=== PATIENT | male | born 1950 | race African-American/Black ===

== ENCOUNTER 2022-01-31 15:25 | Observation (INO) | payer BC, MEDICARE, OTHER ==
[2022-01-31 15:39] VITALS: BMI 24.6
[2022-01-31 16:29] LABS: VENOUS BASE EXCESS -1.4 mmol/L (-2-2); VENOUS O2 SATURATION 97.2 % (70-80); VENOUS PCO2 36.5 mmHg (38-52); VENOUS PH 7.411 (7.310-7.410)
[2022-01-31 16:38] LABS: BASO % 1.1 % (0-2.0); HEMATOCRIT 42.7 % (35.4-49); HEMOGLOBIN 14.1 GM/dL (11.7-16.9); LYMPH % 33.5 % (8-40); MCH 27.9 pg (25.7-33.7); MCHC 33.1 g/dl (32.0-35.9); MEAN CELL VOLUME 84.2 fl (80-96); MEAN PLT VOLUME 7.9 fl (7.5-11.1); MONO % 8.1 % (3.8-10.2); NEUT % 52.3 % (42.8-82.8); PLATELET COUNT 229 10^3/uL (134-434); RBC 5.07 M/mm3 (4.00-5.60); RDW 13.8 % (11.9-15.9); WHITE BLOOD COUNT 3.5 K/mm3 (4.0-10.0)
[2022-01-31 16:43] LABS: PH,URINE 5.5 (5.0-8.0); URINE APPEARANCE CLEAR; URINE BILIRUBIN NEGATIVE (NEGATIVE); URINE COLOR YELLOW; URINE GLUCOSE (UA) 3+ (NEGATIVE); URINE KETONE NEGATIVE (NEGATIVE); URINE LEUK ESTERASE NEGATIVE (NEGATIVE); URINE NITRITE NEGATIVE (NEGATIVE); URINE PROTEIN NEGATIVE (NEGATIVE); URINE UROBILINOGEN 0.2 mg/dL (0.2-1.0)
[2022-01-31 16:48] LABS: ALBUMIN 4.2 g/dl (3.4-5.0); BLOOD UREA NITROGEN 18.3 mg/dL (7-18)
[2022-01-31 16:51] LABS: CREATININE 1.2 mg/dL (0.55-1.3)
[2022-01-31 16:52] LABS: TOT PROT 7.6 g/dl (6.4-8.2)
[2022-01-31 16:53] LABS: BILIRUBIN,TOTAL 0.8 mg/dL (0.2-1)
[2022-01-31] MEDS ORDERED: LISINOPRIL 10 MG TABLET PO ONE (20:39)
[2022-01-31] MEDS ORDERED: LISINOPRIL 10 MG TABLET ONE (21:18)
[2022-01-31] MEDS ORDERED: ATORVASTATIN CA 40 MG TABLET (FP) ONE (21:18)
[2022-01-31] MEDS: ATORVASTATIN CA 40 MG TABLET (FP) PO SCH (21:19)
[2022-01-31] MEDS: INSULIN SLIDING SCALE (NOVOLOG) 1 VIAL SQ SCH (21:20)
[2022-01-31] MEDS ORDERED: TIMOLOL 0.5% OPHTHALMIC SOL 5 ML BOTTLE OU SCH (22:00)
[2022-01-31] MEDS ORDERED: PNEUMOC 20-VAL CONJ-DIP CRM/PF 0.5 ML SYRINGE IM ONE (22:00)
[2022-01-31] MEDS: TIMOLOL 0.5% OPHTHALMIC SOL 5 ML BOTTLE OU SCH (22:20)
[2022-02-01] MEDS: INSULIN SLIDING SCALE (NOVOLOG) 1 VIAL SQ SCH ×4 (06:02→22:19)
[2022-02-01 09:50] LABS: BASO % 0.8 % (0-2.0); EOS % 5.6 % (0-4.5); HEMATOCRIT 45.7 % (35.4-49); HEMOGLOBIN 15.1 GM/dL (11.7-16.9); LYMPH % 22.7 % (8-40); MCH 27.5 pg (25.7-33.7); MEAN CELL VOLUME 83.4 fl (80-96); MONO % 7.1 % (3.8-10.2); NEUT % 63.8 % (42.8-82.8); PLATELET COUNT 228 10^3/uL (134-434); RBC 5.48 M/mm3 (4.00-5.60); RDW 13.6 % (11.9-15.9); WHITE BLOOD COUNT 4.8 K/mm3 (4.0-10.0)
[2022-02-01] MEDS: amLODIPine BESYLATE 5 MG TABLET (FP) PO SCH (09:57)
[2022-02-01] MEDS: TIMOLOL 0.5% OPHTHALMIC SOL 5 ML BOTTLE OU SCH ×2 (10:01→22:20)
[2022-02-01 10:24] LABS: CALCIUM 9.4 mg/dL (8.5-10.1)
[2022-02-01 10:25] LABS: BLOOD UREA NITROGEN 16.1 mg/dL (7-18); MAGNESIUM 2.2 mg/dL (1.8-2.4)
[2022-02-01 10:28] LABS: CREATININE 0.9 mg/dL (0.55-1.3); PHOSPHOROUS 3.9 mg/dL (2.5-4.9)
[2022-02-01 10:29] LABS: TOT PROT 7.5 g/dl (6.4-8.2)
[2022-02-01 10:30] LABS: BILIRUBIN,TOTAL 1.2 mg/dL (0.2-1)
[2022-02-01] MEDS: ENOXAPARIN NA (PORCINE) 40 MG/0.4 ML DISP.SYRIN SQ SCH (14:34)
[2022-02-01] MEDS ORDERED: INSULIN (NOVOLOG) ASPART 100 UNITS/ML 10ML VIAL ONE (21:41)
[2022-02-01] MEDS ORDERED: LISINOPRIL 20 MG TABLET PO SCH (22:00)
[2022-02-01] MEDS: ATORVASTATIN CA 40 MG TABLET (FP) PO SCH (22:19)
[2022-02-02 03:03] VITALS: TEMP 98.4
[2022-02-02] MEDS: INSULIN SLIDING SCALE (NOVOLOG) 1 VIAL SQ SCH ×2 (06:22→11:41)
[2022-02-02 09:02] VITALS: BP 136/78; PULSE 65
[2022-02-02] MEDS: TIMOLOL 0.5% OPHTHALMIC SOL 5 ML BOTTLE OU SCH (09:57)
[2022-02-02] MEDS: amLODIPine BESYLATE 5 MG TABLET (FP) PO SCH (09:57)
[2022-02-02] MEDS: ENOXAPARIN NA (PORCINE) 40 MG/0.4 ML DISP.SYRIN SQ SCH (09:57)
== END 2022-02-02 16:14 | disposition home or self-care (01) ==
LOC: JER 15:25 → JERBED 17:20 → INTOOBSV 17:20 → J6S 21:53
PROVIDERS: ADMIT Internal Medicine; ATTEND Nurse Practitioner Family
PROC: 3E023GC Introduction of Other Therapeutic Substance into Muscle, Percutaneous Approach (ICD-10-PCS; principal; 2022-01-31)
PROC: 3E013VG Introduction of Insulin into Subcutaneous Tissue, Percutaneous Approach (ICD-10-PCS; 2022-01-31)
PROC: 3E023GC Introduction of Other Therapeutic Substance into Muscle, Percutaneous Approach (ICD-10-PCS; 2022-01-31)
DX: E11.65 Type 2 diabetes mellitus with hyperglycemia (principal); E78.5 Hyperlipidemia, unspecified; I10 Essential (primary) hypertension; Z59.00 Homelessness unspecified; Z29.8 Encounter for other specified prophylactic measures
CPT/HCPCS: 36415; 80053; 81003; 82010; 82803; 82962; 83036; 83735; 84100; 85025; 87086; 90677; 93005; 93010; 96372; 99285-25; C9803-CS; G0378; U0003; U0005

== ENCOUNTER 2023-06-29 00:04 | Observation (INO) | payer BC, OTHER ==
[2023-06-29] MEDS ORDERED: ALBUTEROL SO4 2.5/IPRATROPIUM 0.5 INH SOL 3 ML VIAL.NEB. NEB ONE ×4 (00:49→04:09)
[2023-06-29 01:14] LABS: BASO % 0.9 % (0-2.0); EOS % 5.2 % (0-4.5); HEMATOCRIT 40.6 % (35.4-49); HEMOGLOBIN 13.4 GM/dL (11.7-16.9); LYMPH % 34.8 % (8-40); MCH 27.3 pg (25.7-33.7); MEAN CELL VOLUME 82.9 fl (80-96); MEAN PLT VOLUME 7.7 fl (7.5-11.1); MONO % 9.4 % (3.8-10.2); NEUT % 49.7 % (42.8-82.8); PLATELET COUNT 221 10^3/uL (134-434); RDW 14.8 % (11.9-15.9); WHITE BLOOD COUNT 4.3 K/mm3 (4.0-10.0)
[2023-06-29 01:14] LABS: VENOUS BASE EXCESS 1.5 mmol/L (-2-2); VENOUS O2 SATURATION 54.6 % (70-80); VENOUS PCO2 56.7 mmHg (38-52); VENOUS PH 7.325 (7.310-7.410)
[2023-06-29 01:19] LABS: INR 1.04 (0.83-1.09); PROTHROMBIN TIME (PATIENT) 12.1 SEC (9.7-13.0)
[2023-06-29 01:22] LABS: ACTIVATED PTT 27.2 SECONDS (25.2-36.5)
[2023-06-29 01:32] LABS: POTASSIUM 4.6 mmol/L (3.5-5.1)
[2023-06-29 01:34] LABS: CALCIUM 8.8 mg/dL (8.5-10.1)
[2023-06-29 01:35] LABS: ALBUMIN 3.8 g/dl (3.4-5.0)
[2023-06-29 01:38] LABS: CREATININE 1.3 mg/dL (0.55-1.3)
[2023-06-29 01:39] LABS: BILIRUBIN,TOTAL 0.7 mg/dL (0.2-1); TOT PROT 7.3 g/dl (6.4-8.2)
[2023-06-29 01:42] LABS: N-TERMINAL BNP 136.8 pg/ml (5-125)
[2023-06-29] MEDS ORDERED: INSULIN REGULAR HUMAN 100 UNITS/ML *VIAL SQ ONE (04:04)
[2023-06-29] MEDS ORDERED: methylPREDNISolone NA SUCC 125 MG/2 ML VIAL IVPUSH ONE (04:04)
[2023-06-29] MEDS ORDERED: methylPREDNISolone NA SUCC 40 MG/1 ML VIAL ONE ×2 (04:09→09:36)
[2023-06-29] MEDS ORDERED: INSULIN REGULAR HUMAN 100 UNITS/ML *VIAL ONE (04:10)
[2023-06-29] MEDS ORDERED: DOCUSATE SODIUM 100 MG CAPSULE (FP) PO PRN (06:07)
[2023-06-29] MEDS ORDERED: ACETAMINOPHEN 325 MG TABLET (FP) PO PRN (06:07)
[2023-06-29] MEDS: INSULIN SLIDING SCALE (NOVOLOG) 1 VIAL SQ SCH ×4 (07:29→21:43)
[2023-06-29] MEDS ORDERED: LISINOPRIL 20 MG TABLET ONE (09:35)
[2023-06-29] MEDS ORDERED: CARVEDILOL 25 MG TABLET (FP) ONE (09:36)
[2023-06-29] MEDS: LISINOPRIL 20 MG TABLET PO SCH (09:37)
[2023-06-29] MEDS: methylPREDNISolone NA SUCC 40 MG/1 ML VIAL IVPUSH SCH ×2 (09:37→17:38)
[2023-06-29] MEDS: CARVEDILOL 25 MG TABLET (FP) PO SCH ×2 (09:37→21:41)
[2023-06-29] MEDS: POLYETHYLENE GLYCOL (HEALTHYLAX) 3350 17 GM PACKET PO SCH (09:37)
[2023-06-29] MEDS: levETIRAcetam 500 MG TABLET (FP) PO SCH ×2 (10:23→21:41)
[2023-06-29] MEDS: CHLORTHALIDONE 25 MG TABLET PO SCH (10:37)
[2023-06-29 11:00] VITALS: BMI 26.0
[2023-06-29] MEDS ORDERED: ALBUTEROL SO4 2.5/IPRATROPIUM 0.5 INH SOL 3 ML VIAL.NEB. NEB PRN (16:48)
[2023-06-29] MEDS: ATORVASTATIN CA 80 MG TABLET (FP) PO SCH (21:41)
[2023-06-29] MEDS: INSULIN (LEVEMIR) 100 UNITS/ML UNITS SQ SCH (21:44)
[2023-06-30] MEDS: methylPREDNISolone NA SUCC 40 MG/1 ML VIAL IVPUSH SCH ×3 (02:14→17:54)
[2023-06-30] MEDS: glipiZIDE-XL 10 MG TAB.ER.24 (FP) PO SCH (06:27)
[2023-06-30] MEDS: INSULIN SLIDING SCALE (NOVOLOG) 1 VIAL SQ SCH ×4 (06:27→22:45)
[2023-06-30 07:43] LABS: HEMOGLOBIN 12.1 GM/dL (11.7-16.9); MEAN CELL VOLUME 84.3 fl (80-96); MEAN PLT VOLUME 8.4 fl (7.5-11.1); PLATELET COUNT 220 10^3/uL (134-434); RDW 14.6 % (11.9-15.9); WHITE BLOOD COUNT 13.3 K/mm3 (4.0-10.0)
[2023-06-30 08:23] LABS: POTASSIUM 4.3 mmol/L (3.5-5.1)
[2023-06-30 08:24] LABS: CALCIUM 8.7 mg/dL (8.5-10.1)
[2023-06-30 08:25] LABS: BLOOD UREA NITROGEN 33.2 mg/dL (7-18); MAGNESIUM 2.3 mg/dL (1.8-2.4)
[2023-06-30 08:28] LABS: PHOSPHOROUS 3.8 mg/dL (2.5-4.9)
[2023-06-30] MEDS: CHLORTHALIDONE 25 MG TABLET PO SCH (09:32)
[2023-06-30] MEDS: CARVEDILOL 25 MG TABLET (FP) PO SCH ×2 (09:32→22:46)
[2023-06-30] MEDS: LISINOPRIL 20 MG TABLET PO SCH (09:32)
[2023-06-30] MEDS: POLYETHYLENE GLYCOL (HEALTHYLAX) 3350 17 GM PACKET PO SCH (09:32)
[2023-06-30] MEDS: levETIRAcetam 500 MG TABLET (FP) PO SCH ×2 (09:32→22:46)
[2023-06-30] MEDS: amLODIPine BESYLATE 5 MG TABLET (FP) PO SCH (09:32)
[2023-06-30 10:44] LABS: ANISOCYTOSIS 0; HELMET CELLS 0; HOWELL-JOLLY BODIES 0; MACROCYTOSIS 0; OVALOCYTE 0; ROULEAU 0; SICKELED CELLS 0; TARGET CELLS 0; TEAR DROP CELLS 0; TOXIC GRANULATION 0
[2023-06-30] MEDS ORDERED: SODIUM PHOSPHATE/NA BIPHOS 133 ML ENEMA RC ONE (12:15)
[2023-06-30] MEDS ORDERED: INSULIN (NOVOLOG) ASPART 100 UNITS/ML 10ML VIAL ONE ×2 (12:18→17:47)
[2023-06-30] MEDS: CEFTRIAXONE 1 GM in DEXTROSE 5%-WATER - 50 ML IVPB SCH (15:12)
[2023-06-30] MEDS: ALBUTEROL SO4 2.5/IPRATROPIUM 0.5 INH SOL 3 ML VIAL.NEB. NEB SCH ×2 (15:30→22:26)
[2023-06-30] MEDS: INSULIN (LEVEMIR) 100 UNITS/ML UNITS SQ SCH (22:45)
[2023-06-30] MEDS: ATORVASTATIN CA 80 MG TABLET (FP) PO SCH (22:46)
[2023-07-01] MEDS: methylPREDNISolone NA SUCC 40 MG/1 ML VIAL IVPUSH SCH ×3 (02:07→21:49)
[2023-07-01] MEDS: INSULIN SLIDING SCALE (NOVOLOG) 1 VIAL SQ SCH ×4 (06:23→21:50)
[2023-07-01] MEDS: glipiZIDE-XL 10 MG TAB.ER.24 (FP) PO SCH (06:23)
[2023-07-01] MEDS: CEFTRIAXONE 1 GM in DEXTROSE 5%-WATER - 50 ML IVPB SCH (11:24)
[2023-07-01] MEDS: levETIRAcetam 500 MG TABLET (FP) PO SCH ×2 (11:25→21:48)
[2023-07-01] MEDS: LISINOPRIL 20 MG TABLET PO SCH (11:25)
[2023-07-01] MEDS: CARVEDILOL 25 MG TABLET (FP) PO SCH ×2 (11:25→21:49)
[2023-07-01] MEDS: POLYETHYLENE GLYCOL (HEALTHYLAX) 3350 17 GM PACKET PO SCH (11:25)
[2023-07-01] MEDS: amLODIPine BESYLATE 5 MG TABLET (FP) PO SCH (11:25)
[2023-07-01] MEDS: CHLORTHALIDONE 25 MG TABLET PO SCH (12:02)
[2023-07-01] MEDS: ALBUTEROL SO4 2.5/IPRATROPIUM 0.5 INH SOL 3 ML VIAL.NEB. NEB SCH ×4 (12:30→20:10)
[2023-07-01] MEDS: INSULIN (LEVEMIR) 100 UNITS/ML UNITS SQ SCH (21:49)
[2023-07-01] MEDS: ATORVASTATIN CA 80 MG TABLET (FP) PO SCH (21:49)
[2023-07-02] MEDS: glipiZIDE-XL 10 MG TAB.ER.24 (FP) PO SCH (06:43)
[2023-07-02] MEDS: INSULIN SLIDING SCALE (NOVOLOG) 1 VIAL SQ SCH ×4 (06:43→21:46)
[2023-07-02 07:11] LABS: HEMATOCRIT 39.2 % (35.4-49); HEMOGLOBIN 12.8 GM/dL (11.7-16.9); MCH 27.3 pg (25.7-33.7); MCHC 32.6 g/dl (32.0-35.9); MEAN CELL VOLUME 83.8 fl (80-96); MEAN PLT VOLUME 8.3 fl (7.5-11.1); PLATELET COUNT 221 10^3/uL (134-434); RBC 4.68 M/mm3 (4.00-5.60); RDW 14.7 % (11.9-15.9); WHITE BLOOD COUNT 11.9 K/mm3 (4.0-10.0)
[2023-07-02 07:20] LABS: POTASSIUM 4.2 mmol/L (3.5-5.1)
[2023-07-02 07:22] LABS: ALBUMIN 3.2 g/dl (3.4-5.0); BLOOD UREA NITROGEN 35.6 mg/dL (7-18); CALCIUM 9.1 mg/dL (8.5-10.1)
[2023-07-02] MEDS: ALBUTEROL SO4 2.5/IPRATROPIUM 0.5 INH SOL 3 ML VIAL.NEB. NEB SCH ×4 (07:25→20:15)
[2023-07-02 07:27] LABS: BILIRUBIN,TOTAL 0.6 mg/dL (0.2-1); TOT PROT 6.7 g/dl (6.4-8.2)
[2023-07-02 09:01] LABS: ANISOCYTOSIS 0; MACROCYTOSIS 0
[2023-07-02] MEDS: CEFTRIAXONE 1 GM in DEXTROSE 5%-WATER - 50 ML IVPB SCH (10:44)
[2023-07-02] MEDS: amLODIPine BESYLATE 5 MG TABLET (FP) PO SCH (10:46)
[2023-07-02] MEDS: levETIRAcetam 500 MG TABLET (FP) PO SCH ×2 (10:46→21:37)
[2023-07-02] MEDS: methylPREDNISolone NA SUCC 40 MG/1 ML VIAL IVPUSH SCH ×2 (10:46→21:40)
[2023-07-02] MEDS: LISINOPRIL 20 MG TABLET PO SCH (10:46)
[2023-07-02] MEDS: CARVEDILOL 25 MG TABLET (FP) PO SCH ×2 (10:46→21:40)
[2023-07-02] MEDS: CHLORTHALIDONE 25 MG TABLET PO SCH (10:46)
[2023-07-02] MEDS: POLYETHYLENE GLYCOL (HEALTHYLAX) 3350 17 GM PACKET PO SCH (10:46)
[2023-07-02] MEDS: ATORVASTATIN CA 80 MG TABLET (FP) PO SCH (21:38)
[2023-07-02] MEDS: INSULIN (LEVEMIR) 100 UNITS/ML UNITS SQ SCH (21:38)
[2023-07-03] MEDS: INSULIN SLIDING SCALE (NOVOLOG) 1 VIAL SQ SCH ×4 (07:41→22:02)
[2023-07-03] MEDS: glipiZIDE-XL 10 MG TAB.ER.24 (FP) PO SCH (07:41)
[2023-07-03] MEDS: ALBUTEROL SO4 2.5/IPRATROPIUM 0.5 INH SOL 3 ML VIAL.NEB. NEB SCH ×3 (08:50→14:55)
[2023-07-03] MEDS: CARVEDILOL 25 MG TABLET (FP) PO SCH ×2 (10:07→22:01)
[2023-07-03] MEDS: methylPREDNISolone NA SUCC 40 MG/1 ML VIAL IVPUSH SCH (10:07)
[2023-07-03] MEDS: LISINOPRIL 20 MG TABLET PO SCH (10:07)
[2023-07-03] MEDS: CEFTRIAXONE 1 GM in DEXTROSE 5%-WATER - 50 ML IVPB SCH (10:07)
[2023-07-03] MEDS: POLYETHYLENE GLYCOL (HEALTHYLAX) 3350 17 GM PACKET PO SCH (10:08)
[2023-07-03] MEDS: levETIRAcetam 500 MG TABLET (FP) PO SCH ×2 (10:08→22:01)
[2023-07-03] MEDS: CHLORTHALIDONE 25 MG TABLET PO SCH (10:08)
[2023-07-03] MEDS: amLODIPine BESYLATE 5 MG TABLET (FP) PO SCH (10:08)
[2023-07-03] MEDS ORDERED: INSULIN (LEVEMIR) 100 UNITS/ML UNITS SQ SCH (13:30)
[2023-07-03] MEDS: ATORVASTATIN CA 80 MG TABLET (FP) PO SCH (22:01)
[2023-07-04] MEDS: glipiZIDE-XL 10 MG TAB.ER.24 (FP) PO SCH (06:40)
[2023-07-04] MEDS: INSULIN SLIDING SCALE (NOVOLOG) 1 VIAL SQ SCH ×3 (06:40→17:54)
[2023-07-04] MEDS: ALBUTEROL SO4 2.5/IPRATROPIUM 0.5 INH SOL 3 ML VIAL.NEB. NEB SCH ×3 (07:15→15:52)
[2023-07-04] MEDS ORDERED: methylPREDNISolone NA SUCC 40 MG/1 ML VIAL IVPUSH SCH (10:00)
[2023-07-04] MEDS: LISINOPRIL 20 MG TABLET PO SCH (10:41)
[2023-07-04] MEDS: amLODIPine BESYLATE 5 MG TABLET (FP) PO SCH (10:41)
[2023-07-04] MEDS: levETIRAcetam 500 MG TABLET (FP) PO SCH (10:41)
[2023-07-04] MEDS: CARVEDILOL 25 MG TABLET (FP) PO SCH (10:41)
[2023-07-04] MEDS: POLYETHYLENE GLYCOL (HEALTHYLAX) 3350 17 GM PACKET PO SCH (10:42)
[2023-07-04] MEDS: CHLORTHALIDONE 25 MG TABLET PO SCH (10:42)
[2023-07-04] MEDS: CEFTRIAXONE 1 GM in DEXTROSE 5%-WATER - 50 ML IVPB SCH (10:42)
[2023-07-04 15:33] VITALS: PULSE 72; RESP 20
[2023-07-04 18:33] VITALS: BP 122/76; TEMP 98.4
== END 2023-07-04 19:23 | disposition home or self-care (01) ==
LOC: JER 00:04 → JERBED 04:21 → J4W 09:57
PROVIDERS: ADMIT Internal Medicine; ATTEND Internal Medicine
PROC: 3E033NZ Introduction of Analgesics, Hypnotics, Sedatives into Peripheral Vein, Percutaneous Approach (ICD-10-PCS; principal; 2023-06-29)
PROC: 3E013VG Introduction of Insulin into Subcutaneous Tissue, Percutaneous Approach (ICD-10-PCS; 2023-06-29)
PROC: 3E03329 Introduction of Other Anti-infective into Peripheral Vein, Percutaneous Approach (ICD-10-PCS; 2023-06-29)
PROC: 3E033GC Introduction of Other Therapeutic Substance into Peripheral Vein, Percutaneous Approach (ICD-10-PCS; 2023-06-29)
PROC: 3E0F7SF Introduction of Other Gas into Respiratory Tract, Via Natural or Artificial Opening (ICD-10-PCS; 2023-06-29)
DX: E11.65 Type 2 diabetes mellitus with hyperglycemia (principal); J44.1 Chronic obstructive pulmonary disease with (acute) exacerbation; R06.2 Wheezing; R14.0 Abdominal distension (gaseous); I10 Essential (primary) hypertension; E78.5 Hyperlipidemia, unspecified; G40.909 Epilepsy, unspecified, not intractable, without status epilepticus; G30.9 Alzheimer's disease, unspecified; F02.80 Dementia in other diseases classified elsewhere, unspecified severity, without behavioral disturbance, psychotic disturbance, mood disturbance, and anxiety; Z85.46 Personal history of malignant neoplasm of prostate; Z79.4 Long term (current) use of insulin; Z86.73 Personal history of transient ischemic attack (TIA), and cerebral infarction without residual deficits
CPT/HCPCS: 0241U-QW; 36415; 71045-TC-FY; 71275-TC; 74177-TC; 80048; 80053; 82010; 82803; 82962; 83036; 83690; 83735; 83880; 84100; 84484; 85025; 85610; 85730; 86850; 86900; 86901; 87081; 93005; 93010; 93306-TC; 93970-TC; 94640; 94761; 96372; 96374; 96375; 96376; 97116-GP; 97161-GP; 99285-25; G0378; Q9967

== ENCOUNTER 2023-08-18 23:59 | Inpatient (IN) | payer BC, OTHER ==
[2023-08-19] MEDS ORDERED: methylPREDNISolone NA SUCC 125 MG/2 ML VIAL IVPUSH ONE (00:33)
[2023-08-19] MEDS ORDERED: methylPREDNISolone NA SUCC 125 MG/2 ML VIAL ONE (01:06)
[2023-08-19] MEDS: ALBUTEROL SO4 2.5/IPRATROPIUM 0.5 INH SOL 3 ML VIAL.NEB. NEB SCH ×4 (01:12→02:25)
[2023-08-19 01:16] LABS: VENOUS BASE EXCESS 4.5 mmol/L (-2-2); VENOUS O2 SATURATION 39.4 % (70-80); VENOUS PCO2 57.6 mmHg (38-52); VENOUS PH 7.355 (7.310-7.410)
[2023-08-19 01:18] LABS: BASO % 1.1 % (0-2.0); EOS % 7.1 % (0-4.5); HEMATOCRIT 36.5 % (35.4-49); HEMOGLOBIN 11.7 GM/dL (11.7-16.9); LYMPH % 32.7 % (8-40); MCH 27.1 pg (25.7-33.7); MCHC 32.1 g/dl (32.0-35.9); MEAN CELL VOLUME 84.4 fl (80-96); MEAN PLT VOLUME 7.9 fl (7.5-11.1); NEUT % 46.1 % (42.8-82.8); PLATELET COUNT 254 10^3/uL (134-434); RBC 4.32 M/mm3 (4.00-5.60); RDW 14.8 % (11.9-15.9); WHITE BLOOD COUNT 5.4 K/mm3 (4.0-10.0)
[2023-08-19 01:36] LABS: POTASSIUM 3.7 mmol/L (3.5-5.1)
[2023-08-19 01:38] LABS: CALCIUM 8.7 mg/dL (8.5-10.1)
[2023-08-19 01:39] LABS: ALBUMIN 3.3 g/dl (3.4-5.0); BLOOD UREA NITROGEN 18.8 mg/dL (7-18)
[2023-08-19 01:42] LABS: PHOSPHOROUS 2.5 mg/dL (2.5-4.9)
[2023-08-19 01:43] LABS: BILIRUBIN,TOTAL 0.5 mg/dL (0.2-1)
[2023-08-19 01:47] LABS: N-TERMINAL BNP 297.7 pg/ml (5-125)
[2023-08-19] MEDS ORDERED: ALBUTEROL SO4 2.5/IPRATROPIUM 0.5 INH SOL 3 ML VIAL.NEB. NEB ONE ×2 (01:52→19:35)
[2023-08-19] MEDS ORDERED: levETIRAcetam 500 MG/5 ML INJECTION VIAL IVPB ONE ×2 (01:56→02:27)
[2023-08-19] MEDS ORDERED: ACETAMINOPHEN 1000 MG/100 ML BAG IVPB ONE (02:35)
[2023-08-19] MEDS ORDERED: LIDOCAINE 5% TOPICAL PATCH TP ONE (02:35)
[2023-08-19 02:48] LABS: PH,URINE 5.5 (5.0-8.0); URINE APPEARANCE CLEAR; URINE BILIRUBIN NEGATIVE (NEGATIVE); URINE COLOR YELLOW; URINE GLUCOSE (UA) 2+ (NEGATIVE); URINE KETONE NEGATIVE (NEGATIVE); URINE LEUK ESTERASE NEGATIVE (NEGATIVE); URINE NITRITE NEGATIVE (NEGATIVE); URINE PROTEIN NEGATIVE (NEGATIVE); URINE UROBILINOGEN 0.2 mg/dL (0.2-1.0)
[2023-08-19] MEDS ORDERED: ACETAMINOPHEN INJECTION 100 ML IVPB ONE (03:00)
[2023-08-19] MEDS ORDERED: LIDOCAINE 4% PATCH TP ONE (03:06)
[2023-08-19] MEDS: levETIRAcetam 500 MG TABLET (FP) PO SCH ×2 (10:05→22:03)
[2023-08-19 18:01] VITALS: BMI 23.6
[2023-08-19] MEDS: LIDOCAINE PATCH REMOVAL MC SCH ×2 (22:04→22:11)
[2023-08-20] MEDS: INSULIN ASPART SLIDING SCALE (NOVOLOG) 1 VIAL SQ SCH ×4 (06:27→17:09)
[2023-08-20 09:09] LABS: HEMATOCRIT 34.3 % (35.4-49); HEMOGLOBIN 11.4 GM/dL (11.7-16.9); MCH 27.5 pg (25.7-33.7); MCHC 33.1 g/dl (32.0-35.9); MEAN CELL VOLUME 83.1 fl (80-96); MEAN PLT VOLUME 7.9 fl (7.5-11.1); PLATELET COUNT 246 10^3/uL (134-434); RBC 4.13 M/mm3 (4.00-5.60); RDW 14.5 % (11.9-15.9); WHITE BLOOD COUNT 7.8 K/mm3 (4.0-10.0)
[2023-08-20 09:24] LABS: POTASSIUM 3.6 mmol/L (3.5-5.1)
[2023-08-20 09:32] LABS: CALCIUM 9.1 mg/dL (8.5-10.1)
[2023-08-20 09:33] LABS: BLOOD UREA NITROGEN 24.2 mg/dL (7-18)
[2023-08-20 09:36] LABS: CREATININE 1.1 mg/dL (0.55-1.3)
[2023-08-20] MEDS: levETIRAcetam 500 MG TABLET (FP) PO SCH ×2 (10:24→21:35)
[2023-08-20] MEDS: metFORMIN HCL 500 MG TABLET (FP) PO SCH (17:09)
[2023-08-20] MEDS: glipiZIDE 5 MG TABLET (FP) PO SCH (17:09)
[2023-08-20] MEDS: CARVEDILOL 25 MG TABLET (FP) PO SCH (21:37)
[2023-08-20] MEDS: ACETAMINOPHEN 325 MG TABLET (FP) PO PRN (21:38)
[2023-08-20] MEDS ORDERED: levETIRAcetam 500 MG TABLET (FP) PO SCH (22:00)
[2023-08-20] MEDS ORDERED: ATORVASTATIN CA 40 MG TABLET (FP) PO SCH (22:00)
[2023-08-20] MEDS: INSULIN (LEVEMIR) 100 UNITS/ML UNITS SQ SCH (23:05)
[2023-08-20] MEDS: LIDOCAINE PATCH REMOVAL MC SCH (23:06)
[2023-08-21] MEDS: glipiZIDE 5 MG TABLET (FP) PO SCH ×2 (06:36→17:08)
[2023-08-21] MEDS: metFORMIN HCL 500 MG TABLET (FP) PO SCH ×2 (06:36→17:08)
[2023-08-21] MEDS: INSULIN ASPART SLIDING SCALE (NOVOLOG) 1 VIAL SQ SCH ×4 (06:37→17:09)
[2023-08-21] MEDS: CARVEDILOL 25 MG TABLET (FP) PO SCH ×2 (09:32→22:09)
[2023-08-21] MEDS: LISINOPRIL 20 MG TABLET PO SCH (09:32)
[2023-08-21] MEDS: POLYETHYLENE GLYCOL (HEALTHYLAX) 3350 17 GM PACKET PO SCH (09:33)
[2023-08-21] MEDS: CHLORTHALIDONE 25 MG TABLET PO SCH (09:33)
[2023-08-21] MEDS: levETIRAcetam 500 MG TABLET (FP) PO SCH ×2 (09:33→22:09)
[2023-08-21] MEDS ORDERED: LISINOPRIL 10 MG TABLET PO SCH (10:00)
[2023-08-21] MEDS: BUDESONIDE/FORMETEROL FUMARATE 160/4.5 mcg INHALER IH SCH ×2 (10:04→22:11)
[2023-08-21] MEDS: ACETAMINOPHEN 325 MG TABLET (FP) PO PRN (22:09)
[2023-08-21] MEDS: ATORVASTATIN CA 80 MG TABLET (FP) PO SCH (22:09)
[2023-08-21] MEDS: INSULIN (LEVEMIR) 100 UNITS/ML UNITS SQ SCH (22:10)
[2023-08-21] MEDS: LIDOCAINE PATCH REMOVAL MC SCH (22:13)
[2023-08-22] MEDS: glipiZIDE 5 MG TABLET (FP) PO SCH ×2 (06:28→17:27)
[2023-08-22] MEDS: metFORMIN HCL 500 MG TABLET (FP) PO SCH ×2 (06:28→17:27)
[2023-08-22] MEDS: INSULIN ASPART SLIDING SCALE (NOVOLOG) 1 VIAL SQ SCH ×3 (06:30→17:26)
[2023-08-22] MEDS: POLYETHYLENE GLYCOL (HEALTHYLAX) 3350 17 GM PACKET PO SCH (11:15)
[2023-08-22] MEDS: levETIRAcetam 500 MG TABLET (FP) PO SCH ×2 (11:16→21:53)
[2023-08-22] MEDS: CHLORTHALIDONE 25 MG TABLET PO SCH (11:16)
[2023-08-22] MEDS: CARVEDILOL 25 MG TABLET (FP) PO SCH ×2 (11:16→21:54)
[2023-08-22] MEDS: BUDESONIDE/FORMETEROL FUMARATE 160/4.5 mcg INHALER IH SCH ×2 (11:17→22:43)
[2023-08-22] MEDS: LISINOPRIL 20 MG TABLET PO SCH (11:17)
[2023-08-22 14:52] VITALS: RESP 18
[2023-08-22] MEDS: LIDOCAINE PATCH REMOVAL MC SCH (21:37)
[2023-08-22] MEDS: INSULIN (LEVEMIR) 100 UNITS/ML UNITS SQ SCH (21:53)
[2023-08-22] MEDS: ATORVASTATIN CA 80 MG TABLET (FP) PO SCH (21:53)
[2023-08-23] MEDS: INSULIN ASPART SLIDING SCALE (NOVOLOG) 1 VIAL SQ SCH ×3 (06:40→16:54)
[2023-08-23] MEDS: INSULIN (LEVEMIR) 100 UNITS/ML UNITS SQ SCH ×2 (06:41→22:56)
[2023-08-23] MEDS: metFORMIN HCL 500 MG TABLET (FP) PO SCH ×2 (06:41→16:59)
[2023-08-23] MEDS: glipiZIDE 5 MG TABLET (FP) PO SCH ×2 (06:41→16:59)
[2023-08-23] MEDS: LISINOPRIL 20 MG TABLET PO SCH (09:09)
[2023-08-23] MEDS: levETIRAcetam 500 MG TABLET (FP) PO SCH ×2 (09:10→22:48)
[2023-08-23] MEDS: BUDESONIDE/FORMETEROL FUMARATE 160/4.5 mcg INHALER IH SCH ×2 (09:10→22:55)
[2023-08-23] MEDS: CARVEDILOL 25 MG TABLET (FP) PO SCH ×2 (09:10→22:57)
[2023-08-23] MEDS: CHLORTHALIDONE 25 MG TABLET PO SCH (09:10)
[2023-08-23] MEDS: POLYETHYLENE GLYCOL (HEALTHYLAX) 3350 17 GM PACKET PO SCH (09:10)
[2023-08-23] MEDS: ATORVASTATIN CA 80 MG TABLET (FP) PO SCH (22:49)
[2023-08-23] MEDS: LIDOCAINE PATCH REMOVAL MC SCH (22:57)
[2023-08-24] MEDS: metFORMIN HCL 500 MG TABLET (FP) PO SCH ×2 (06:23→16:36)
[2023-08-24] MEDS: glipiZIDE 5 MG TABLET (FP) PO SCH ×2 (06:23→16:36)
[2023-08-24] MEDS: INSULIN (LEVEMIR) 100 UNITS/ML UNITS SQ SCH ×2 (06:24→22:17)
[2023-08-24] MEDS: INSULIN ASPART SLIDING SCALE (NOVOLOG) 1 VIAL SQ SCH ×3 (06:26→16:34)
[2023-08-24] MEDS: LISINOPRIL 20 MG TABLET PO SCH (10:06)
[2023-08-24] MEDS: levETIRAcetam 500 MG TABLET (FP) PO SCH ×2 (10:06→22:17)
[2023-08-24] MEDS: CARVEDILOL 25 MG TABLET (FP) PO SCH ×2 (10:06→22:17)
[2023-08-24] MEDS: POLYETHYLENE GLYCOL (HEALTHYLAX) 3350 17 GM PACKET PO SCH (10:07)
[2023-08-24] MEDS: BUDESONIDE/FORMETEROL FUMARATE 160/4.5 mcg INHALER IH SCH ×2 (10:07→22:18)
[2023-08-24] MEDS: CHLORTHALIDONE 25 MG TABLET PO SCH (10:07)
[2023-08-24] MEDS: ATORVASTATIN CA 80 MG TABLET (FP) PO SCH (22:16)
[2023-08-24] MEDS: LIDOCAINE PATCH REMOVAL MC SCH (22:19)
[2023-08-25] MEDS: INSULIN ASPART SLIDING SCALE (NOVOLOG) 1 VIAL SQ SCH ×2 (06:08→11:36)
[2023-08-25] MEDS: glipiZIDE 5 MG TABLET (FP) PO SCH (06:11)
[2023-08-25] MEDS: INSULIN (LEVEMIR) 100 UNITS/ML UNITS SQ SCH (06:11)
[2023-08-25] MEDS: metFORMIN HCL 500 MG TABLET (FP) PO SCH (06:11)
[2023-08-25] MEDS: POLYETHYLENE GLYCOL (HEALTHYLAX) 3350 17 GM PACKET PO SCH (09:02)
[2023-08-25] MEDS: LISINOPRIL 20 MG TABLET PO SCH (09:02)
[2023-08-25] MEDS: CARVEDILOL 25 MG TABLET (FP) PO SCH (09:03)
[2023-08-25] MEDS: levETIRAcetam 500 MG TABLET (FP) PO SCH (09:03)
[2023-08-25] MEDS: BUDESONIDE/FORMETEROL FUMARATE 160/4.5 mcg INHALER IH SCH (09:03)
[2023-08-25] MEDS: CHLORTHALIDONE 25 MG TABLET PO SCH (09:03)
[2023-08-25 14:22] VITALS: BP 103/71; PULSE 73; TEMP 97.3
== END 2023-08-25 15:58 | DRG 53 ==
LOC: JER 23:59 → JERBED 08-19 06:31 → OBSVTOIN 08-19 10:40 → J6S 08-19 19:50
PROVIDERS: ADMIT Internal Medicine; ATTEND Internal Medicine
DX: G40.909 Epilepsy, unspecified, not intractable, without status epilepticus (principal); G30.9 Alzheimer's disease, unspecified; F02.80 Dementia in other diseases classified elsewhere, unspecified severity, without behavioral disturbance, psychotic disturbance, mood disturbance, and anxiety; J44.9 Chronic obstructive pulmonary disease, unspecified; I10 Essential (primary) hypertension; E78.5 Hyperlipidemia, unspecified; R91.8 Other nonspecific abnormal finding of lung field; K59.00 Constipation, unspecified; M21.372 Foot drop, left foot; M21.371 Foot drop, right foot; N40.0 Benign prostatic hyperplasia without lower urinary tract symptoms; Z99.81 Dependence on supplemental oxygen; Z85.46 Personal history of malignant neoplasm of prostate
CPT/HCPCS: 0241U-QW; 36415; 70450-TC; 71045-TC-FY; 74177-TC; 80048; 80053; 80177; 81003; 82803; 82962; 83605; 83735; 83880; 84100; 84443; 84484; 85025; 85027; 86850; 86900; 86901; 87081; 87086; 87186; 93005; 93010; 93970-TC; 95816; 97116-GP; 99285-25; G0378; Q9967

== ENCOUNTER 2023-09-21 15:29 | Inpatient (IN) | payer BC, OTHER ==
[2023-09-21] MEDS ORDERED: ACETAMINOPHEN INJECTION 100 ML IVPB ONE (17:47)
[2023-09-21 18:08] LABS: BASO % 1.4 % (0-2.0); EOS % 3.9 % (0-4.5); HEMATOCRIT 37.9 % (35.4-49); HEMOGLOBIN 12.6 GM/dL (11.7-16.9); LYMPH % 33.8 % (8-40); MCH 27.9 pg (25.7-33.7); MCHC 33.2 g/dl (32.0-35.9); MEAN CELL VOLUME 83.9 fl (80-96); MEAN PLT VOLUME 7.1 fl (7.5-11.1); MONO % 9.1 % (3.8-10.2); NEUT % 51.8 % (42.8-82.8); PLATELET COUNT 217 10^3/uL (134-434); RBC 4.52 M/mm3 (4.00-5.60); WHITE BLOOD COUNT 5.8 K/mm3 (4.0-10.0)
[2023-09-21 18:16] LABS: INR 1.05 (0.83-1.09); PROTHROMBIN TIME (PATIENT) 12.2 SEC (9.7-13.0)
[2023-09-21 18:19] LABS: ACTIVATED PTT 28.7 SECONDS (25.2-36.5)
[2023-09-21 18:31] LABS: POTASSIUM 4.1 mmol/L (3.5-5.1)
[2023-09-21 18:32] LABS: CALCIUM 8.7 mg/dL (8.5-10.1)
[2023-09-21 18:34] LABS: ALBUMIN 3.4 g/dl (3.4-5.0); BLOOD UREA NITROGEN 15.6 mg/dL (7-18); MAGNESIUM 2.2 mg/dL (1.8-2.4)
[2023-09-21 18:36] LABS: CREATININE 0.9 mg/dL (0.55-1.3); PHOSPHOROUS 3.8 mg/dL (2.5-4.9)
[2023-09-21 18:38] LABS: BILIRUBIN,TOTAL 0.7 mg/dL (0.2-1); TOT PROT 6.3 g/dl (6.4-8.2)
[2023-09-21] MEDS: ACETAMINOPHEN 1000 MG/100 ML BAG IVPB ONE (19:01)
[2023-09-21] MEDS ORDERED: levETIRAcetam 500 MG/5 ML INJECTION VIAL IVPB ONE (20:41)
[2023-09-21] MEDS: levETIRAcetam 500 MG/5 ML INJECTION VIAL IVPB ONE (20:54)
[2023-09-21] MEDS ORDERED: ONDANSETRON 4 MG/2 ML VIAL IVPUSH PRN (21:33)
[2023-09-21] MEDS ORDERED: ACETAMINOPHEN 650 MG SUPP.RECT RC PRN (21:51)
[2023-09-21] MEDS: THIAMINE HCL 200 MG/2 ML VIAL IVPB SCH (22:54)
[2023-09-21] MEDS: FOLIC ACID 5 MG/1 ML SQ ONE (22:55)
[2023-09-21] MEDS: PANTOPRAZOLE SODIUM 40 MG VIAL IVPUSH SCH (22:55)
[2023-09-21] MEDS: LACTATED RINGERS SOLUTION 1,000 ML/1,000 ML INFUS.BAG IV SCH (22:56)
[2023-09-21] MEDS: MUPIROCIN 2% TOPICAL OINTMENT FOR DECOLONIZATION NS SCH (22:56)
[2023-09-21] MEDS: CHLORHEXIDINE GLUCONATE 4% CLEANSER FOR DECOLONIZATION TP SCH (22:56)
[2023-09-21] MEDS: ALBUTEROL SO4 2.5/IPRATROPIUM 0.5 INH SOL 3 ML VIAL.NEB. NEB SCH (23:00)
[2023-09-21] MEDS: INSULIN ASPART SLIDING SCALE (NOVOLOG) 1 VIAL SQ SCH (23:32)
[2023-09-22] MEDS ORDERED: DEXTROSE 50%-WATER 25 GM/50 ML DISP.SYRIN IVPUSH PRN (00:34)
[2023-09-22 01:02] LABS: URINE APPEARANCE CLEAR; URINE BILIRUBIN NEGATIVE (NEGATIVE); URINE COLOR YELLOW; URINE GLUCOSE (UA) NEGATIVE (NEGATIVE); URINE KETONE NEGATIVE (NEGATIVE); URINE LEUK ESTERASE NEGATIVE (NEGATIVE); URINE NITRITE NEGATIVE (NEGATIVE); URINE PROTEIN NEGATIVE (NEGATIVE); URINE UROBILINOGEN 0.2 mg/dL (0.2-1.0)
[2023-09-22 07:02] LABS: BASO % 0.5 % (0-2.0); EOS % 4.9 % (0-4.5); HEMATOCRIT 34.5 % (35.4-49); HEMOGLOBIN 11.5 GM/dL (11.7-16.9); LYMPH % 36.1 % (8-40); MCHC 33.2 g/dl (32.0-35.9); MEAN CELL VOLUME 84.3 fl (80-96); MEAN PLT VOLUME 7.6 fl (7.5-11.1); MONO % 9.3 % (3.8-10.2); NEUT % 49.2 % (42.8-82.8); PLATELET COUNT 199 10^3/uL (134-434); RBC 4.09 M/mm3 (4.00-5.60); RDW 14.9 % (11.9-15.9); WHITE BLOOD COUNT 4.6 K/mm3 (4.0-10.0)
[2023-09-22 07:04] LABS: INR 1.1 (0.83-1.09); PROTHROMBIN TIME (PATIENT) 12.7 SEC (9.7-13.0)
[2023-09-22 07:07] LABS: ACTIVATED PTT 27.3 SECONDS (25.2-36.5)
[2023-09-22 07:27] LABS: POTASSIUM 4.1 mmol/L (3.5-5.1)
[2023-09-22 07:36] LABS: CALCIUM 8.4 mg/dL (8.5-10.1)
[2023-09-22 07:37] LABS: BLOOD UREA NITROGEN 13.6 mg/dL (7-18); MAGNESIUM 1.8 mg/dL (1.8-2.4)
[2023-09-22 07:39] LABS: CREATININE 0.8 mg/dL (0.55-1.3); PHOSPHOROUS 3.5 mg/dL (2.5-4.9)
[2023-09-22 07:44] LABS: TOT PROT 5.8 g/dl (6.4-8.2)
[2023-09-22] MEDS ORDERED: SODIUM PHOSPHATE/NA BIPHOS 133 ML ENEMA RC PRN (09:53)
[2023-09-22] MEDS ORDERED: levETIRAcetam 500 MG/5 ML INJECTION VIAL IVPB SCH (10:00)
[2023-09-22] MEDS: POLYETHYLENE GLYCOL (HEALTHYLAX) 3350 17 GM PACKET PO SCH ×2 (10:51→21:54)
[2023-09-22] MEDS: levETIRAcetam 500 MG/5 ML INJECTION VIAL IVPB SCH (10:51)
[2023-09-22] MEDS: amLODIPine BESYLATE 5 MG TABLET (FP) PO ONE (10:51)
[2023-09-22] MEDS: FLU VACCINE (FLULAVAL) PF 60 MCG/0.5 ML SYRINGE 2023-2024 IM ONE (11:30)
[2023-09-22] MEDS: MULTIVIT INJ. ADULT COMBO WITH VIT K 1 COMBO 10 ML VIAL IV SCH (14:04)
[2023-09-22] MEDS: LISINOPRIL 20 MG TABLET PO ONE (17:40)
[2023-09-22] MEDS: ATORVASTATIN CA 80 MG TABLET (FP) PO SCH (21:54)
[2023-09-22] MEDS: SENNOSIDES 8.8 MG/5 ML SYRUP PO SCH (21:54)
[2023-09-23 06:55] LABS: BASO % 0.6 % (0-2.0); HEMATOCRIT 37.5 % (35.4-49); LYMPH % 20.9 % (8-40); MCH 27.3 pg (25.7-33.7); MCHC 32.1 g/dl (32.0-35.9); MEAN CELL VOLUME 84.9 fl (80-96); MEAN PLT VOLUME 7.8 fl (7.5-11.1); MONO % 9.4 % (3.8-10.2); NEUT % 63.1 % (42.8-82.8); PLATELET COUNT 208 10^3/uL (134-434); RBC 4.42 M/mm3 (4.00-5.60); WHITE BLOOD COUNT 4.7 K/mm3 (4.0-10.0)
[2023-09-23 07:19] LABS: POTASSIUM 4.2 mmol/L (3.5-5.1)
[2023-09-23 07:25] LABS: CALCIUM 8.4 mg/dL (8.5-10.1)
[2023-09-23 07:26] LABS: ALBUMIN 3.2 g/dl (3.4-5.0); BLOOD UREA NITROGEN 13.8 mg/dL (7-18)
[2023-09-23 07:28] LABS: BILIRUBIN,TOTAL 1.4 mg/dL (0.2-1); TOT PROT 6.4 g/dl (6.4-8.2)
[2023-09-23 07:29] LABS: CREATININE 0.8 mg/dL (0.55-1.3)
[2023-09-23] MEDS: LISINOPRIL 20 MG TABLET PO SCH (09:43)
[2023-09-23] MEDS ORDERED: INSULIN (NOVOLOG) ASPART 100 UNITS/ML 10ML VIAL ONE ×2 (12:12→16:10)
[2023-09-23] MEDS: CARVEDILOL 25 MG TABLET (FP) PO SCH (22:05)
[2023-09-24] MEDS ORDERED: DEXTROSE 50%-WATER 25 GM/50 ML DISP.SYRIN IVPUSH PRN (07:14)
[2023-09-24] MEDS ORDERED: ONDANSETRON 4 MG/2 ML VIAL IVPUSH PRN (07:14)
[2023-09-24] MEDS ORDERED: SODIUM PHOSPHATE/NA BIPHOS 133 ML ENEMA RC PRN (07:14)
[2023-09-24] MEDS ORDERED: ACETAMINOPHEN 650 MG SUPP.RECT RC PRN (07:14)
[2023-09-24] MEDS: ALBUTEROL SO4 2.5/IPRATROPIUM 0.5 INH SOL 3 ML VIAL.NEB. NEB SCH (07:53)
[2023-09-24] MEDS: PANTOPRAZOLE 40 MG TABLET PO SCH (09:20)
[2023-09-24] MEDS: levETIRAcetam 500 MG/5 ML INJECTION VIAL IVPB SCH (09:21)
[2023-09-24] MEDS: POLYETHYLENE GLYCOL (HEALTHYLAX) 3350 17 GM PACKET PO SCH ×2 (09:21→21:48)
[2023-09-24] MEDS: amLODIPine BESYLATE 5 MG TABLET (FP) PO SCH (10:48)
[2023-09-24] MEDS: INSULIN ASPART SLIDING SCALE (NOVOLOG) 1 VIAL SQ SCH (11:46)
[2023-09-24] MEDS ORDERED: ALBUTEROL SO4 2.5/IPRATROPIUM 0.5 INH SOL 3 ML VIAL.NEB. NEB PRN (13:06)
[2023-09-24 15:06] VITALS: BMI 25.4
[2023-09-24] MEDS: SENNOSIDES 8.8 MG/5 ML SYRUP PO SCH (21:49)
[2023-09-24] MEDS: ATORVASTATIN CA 80 MG TABLET (FP) PO SCH (21:49)
[2023-09-25] MEDS ORDERED: SODIUM PHOSPHATE/NA BIPHOS 133 ML ENEMA RC PRN (13:33)
[2023-09-25] MEDS ORDERED: DEXTROSE 50%-WATER 25 GM/50 ML DISP.SYRIN IVPUSH PRN (13:33)
[2023-09-25] MEDS ORDERED: ONDANSETRON 4 MG/2 ML VIAL IVPUSH PRN (13:33)
[2023-09-25] MEDS ORDERED: ACETAMINOPHEN 650 MG SUPP.RECT RC PRN (13:33)
[2023-09-25] MEDS ORDERED: ALBUTEROL SO4 2.5/IPRATROPIUM 0.5 INH SOL 3 ML VIAL.NEB. NEB PRN (13:33)
[2023-09-25] MEDS: MULTIVIT INJ. ADULT COMBO WITH VIT K 1 COMBO 10 ML VIAL IV SCH ×2 (13:37→14:54)
[2023-09-25 14:33] VITALS: RESP 18
[2023-09-25] MEDS ORDERED: ACETAMINOPHEN 325 MG TABLET (FP) PO PRN (14:50)
[2023-09-25] MEDS: MULTIVITAMINS (DAILY MVI) TABLET (FP) PO SCH (16:51)
[2023-09-25] MEDS: INSULIN ASPART SLIDING SCALE (NOVOLOG) 1 VIAL SQ SCH (16:55)
[2023-09-25] MEDS: levETIRAcetam 500 MG TABLET (FP) PO SCH (21:36)
[2023-09-25] MEDS: CARVEDILOL 25 MG TABLET (FP) PO SCH (21:36)
[2023-09-25] MEDS: ATORVASTATIN CA 80 MG TABLET (FP) PO SCH (21:36)
[2023-09-25] MEDS: SENNOSIDES 8.8 MG/5 ML SYRUP PO SCH (21:38)
[2023-09-25] MEDS ORDERED: POLYETHYLENE GLYCOL (HEALTHYLAX) 3350 17 GM PACKET PO SCH (22:00)
[2023-09-26] MEDS: PANTOPRAZOLE 40 MG TABLET PO SCH (09:50)
[2023-09-26] MEDS: LISINOPRIL 20 MG TABLET PO SCH (09:50)
[2023-09-26] MEDS ORDERED: amLODIPine BESYLATE 5 MG TABLET (FP) PO SCH (10:00)
[2023-09-26] MEDS ORDERED: MULTIVIT INJ. ADULT COMBO WITH VIT K 1 COMBO 10 ML VIAL IV SCH (10:00)
[2023-09-26] MEDS ORDERED: POLYETHYLENE GLYCOL (HEALTHYLAX) 3350 17 GM PACKET PO PRN (10:00)
[2023-09-26] MEDS: amLODIPine BESYLATE 10 MG TABLET (FP) PO SCH (10:09)
[2023-09-26] MEDS ORDERED: INSULIN (NOVOLOG) ASPART 100 UNITS/ML 10ML VIAL ONE ×2 (11:21→16:48)
[2023-09-27 05:15] VITALS: BP 123/76; PULSE 83; TEMP 99.5
[2023-09-27] MEDS ORDERED: INSULIN (NOVOLOG) ASPART 100 UNITS/ML 10ML VIAL ONE (11:05)
== END 2023-09-27 11:48 | DRG 82 ==
LOC: JER 15:29 → JERBED 16:45 → UNDOADMOB 16:45 → JERBED 19:24 → JICU 21:31 → J4W 09-22 18:17 → J8W 09-25 13:32
PROVIDERS: ADMIT Internal Medicine; ATTEND Internal Medicine
DX: S06.359A Traumatic hemorrhage of left cerebrum with loss of consciousness of unspecified duration, initial encounter (principal); G93.6 Cerebral edema; J44.0 Chronic obstructive pulmonary disease with (acute) lower respiratory infection; I10 Essential (primary) hypertension; E78.5 Hyperlipidemia, unspecified; E11.9 Type 2 diabetes mellitus without complications; G40.909 Epilepsy, unspecified, not intractable, without status epilepticus; R55 Syncope and collapse; G30.9 Alzheimer's disease, unspecified; F02.80 Dementia in other diseases classified elsewhere, unspecified severity, without behavioral disturbance, psychotic disturbance, mood disturbance, and anxiety; R91.8 Other nonspecific abnormal finding of lung field; W18.39XA Other fall on same level, initial encounter; Y92.098 Other place in other non-institutional residence as the place of occurrence of the external cause; Y99.9 Unspecified external cause status; Z85.46 Personal history of malignant neoplasm of prostate; Z99.81 Dependence on supplemental oxygen
CPT/HCPCS: 0241U-QW; 36415; 70450-TC; 70553-TC; 71046-TC-FY; 72125-TC; 72170-TC-FY; 73030-TC-RT-FY; 73060-TC-RT-FY; 73552-TC-RT-FY; 74018-TC-FY; 80053; 81003; 82550; 82962; 83036; 83735; 84100; 84436; 84443; 84484; 85025; 85027; 85610; 85730; 86850; 86900; 86901; 87040; 87086; 87635; 90686; 93005; 93010; 94640; 97116-GP; 97162-GP; 99291; G0008; J0131

== ENCOUNTER 2023-10-31 14:17 | Inpatient (IN) | payer OTHER ==
[2023-10-31] MEDS ORDERED: ACETAMINOPHEN INJECTION 100 ML IVPB ONE (15:37)
[2023-10-31 15:42] LABS: HEMATOCRIT 38.2 % (35.4-49); HEMOGLOBIN 12.4 GM/dL (11.7-16.9); MCH 26.9 pg (25.7-33.7); MCHC 32.5 g/dl (32.0-35.9); MEAN CELL VOLUME 82.8 fl (80-96); MEAN PLT VOLUME 7.6 fl (7.5-11.1); PLATELET COUNT 356 10^3/uL (134-434); RBC 4.61 M/mm3 (4.00-5.60); RDW 15.1 % (11.9-15.9); WHITE BLOOD COUNT 14.7 K/mm3 (4.0-10.0)
[2023-10-31] MEDS: ACETAMINOPHEN 1000 MG/100 ML BAG IVPB ONE (15:43)
[2023-10-31] MEDS: LACTATED RINGERS SOLUTION 1000 ML INFUS.BAG IV ONE ×2 (15:44→17:30)
[2023-10-31 15:49] LABS: INR 1.63 (0.83-1.09); PROTHROMBIN TIME (PATIENT) 18.8 SEC (9.7-13.0)
[2023-10-31 15:52] LABS: ACTIVATED PTT 23.8 SECONDS (25.2-36.5)
[2023-10-31 16:19] LABS: ANISOCYTOSIS 2+; MACROCYTOSIS 0; OVALOCYTE 2+
[2023-10-31 16:28] LABS: CHLORIDE 111 mmol/L (98-107); SODIUM 133 mmol/L (136-145)
[2023-10-31 16:31] LABS: CALCIUM 9.3 mg/dL (8.5-10.1); CO2 18 mmol/L (21-32); GLUCOSE,RANDOM 256 mg/dL (74-106)
[2023-10-31 16:32] LABS: ALBUMIN 2.6 g/dl (3.4-5.0)
[2023-10-31 16:33] LABS: CREATININE 3.4 mg/dL (0.55-1.3)
[2023-10-31 16:35] LABS: SGOT/AST 44 U/L (15-37)
[2023-10-31 16:36] LABS: ALK PHOS 238 U/L (45-117); BILIRUBIN,TOTAL 0.9 mg/dL (0.2-1); TOT PROT 7.6 g/dl (6.4-8.2)
[2023-10-31 17:24] LABS: ANION GAP 5 mmol/L (4-13); BLOOD UREA NITROGEN 130.9 mg/dL (7-18); POTASSIUM 8.8 mmol/L (3.5-5.1); SGPT/ALT 32 U/L (13-61)
[2023-10-31 18:06] LABS: CHLORIDE 111 mmol/L (98-107); POTASSIUM 5.6 mmol/L (3.5-5.1); SODIUM 139 mmol/L (136-145)
[2023-10-31 18:08] LABS: ANION GAP 9 mmol/L (4-13); CALCIUM 9.5 mg/dL (8.5-10.1); CO2 19 mmol/L (21-32); GLUCOSE,RANDOM 269 mg/dL (74-106)
[2023-10-31 18:12] LABS: CREATININE 3.4 mg/dL (0.55-1.3)
[2023-10-31 18:12] LABS: EPI CELLS 1 /uL (0-25.1); HYALINE CASTS 0 /uL (0-3.1); URINE APPEARANCE TURBID; URINE BACTERIA 5935 /uL (0-1359); URINE BILIRUBIN NEGATIVE (NEGATIVE); URINE COLOR YELLOW; URINE GLUCOSE (UA) NEGATIVE (NEGATIVE); URINE KETONE TRACE (NEGATIVE); URINE LEUK ESTERASE 3+ (NEGATIVE); URINE NITRITE NEGATIVE (NEGATIVE); URINE PROTEIN 1+ (NEGATIVE); URINE UROBILINOGEN 0.2 mg/dL (0.2-1.0); URINE WBC 2367 /uL (0-25.8)
[2023-10-31 18:15] LABS: URINE RBC 35.6 /uL (0-23.9)
[2023-10-31 18:54] LABS: BLOOD UREA NITROGEN 134.7 mg/dL (7-18)
[2023-10-31] MEDS ORDERED: PIPERACILLIN/TAZOB 3.375 GM 3.375 GM/50 ML BAG IVPB ONE (19:52)
[2023-10-31] MEDS: PIPERACILLIN/TAZOB 3.375 GM 3.375 GM in DEXTROSE 5%-WATER - 50 ML IVPB ONE (20:05)
[2023-10-31] MEDS: INSULIN ASPART SLIDING SCALE (NOVOLOG) 1 VIAL SQ SCH (22:56)
[2023-10-31] MEDS: SODIUM CHLORIDE 1,000 ML IV SCH (22:57)
[2023-11-01 00:37] LABS: CALCIUM 8.6 mg/dL (8.5-10.1); CHLORIDE 113 mmol/L (98-107); POTASSIUM 5.5 mmol/L (3.5-5.1); SODIUM 139 mmol/L (136-145)
[2023-11-01 00:38] LABS: ANION GAP 6 mmol/L (4-13); CO2 20 mmol/L (21-32); GLUCOSE,RANDOM 229 mg/dL (74-106)
[2023-11-01 00:41] LABS: CREATININE 3.2 mg/dL (0.55-1.3); PHOSPHOROUS 5.3 mg/dL (2.5-4.9)
[2023-11-01] MEDS: PIPERACILLIN/TAZOB 2.25 GM 2.25 GM in DEXTROSE 5%-WATER - 50 ML IVPB SCH ×2 (02:52→10:17)
[2023-11-01] MEDS ORDERED: ALBUTEROL SO4 2.5/IPRATROPIUM 0.5 INH SOL 3 ML VIAL.NEB. NEB PRN (05:39)
[2023-11-01 09:23] LABS: BASO % 0.1 % (0-2.0); HEMATOCRIT 33.8 % (35.4-49); HEMOGLOBIN 10.6 GM/dL (11.7-16.9); LYMPH % 6.5 % (8-40); MCH 26.2 pg (25.7-33.7); MCHC 31.4 g/dl (32.0-35.9); MEAN CELL VOLUME 83.4 fl (80-96); MEAN PLT VOLUME 7.4 fl (7.5-11.1); MONO % 4.1 % (3.8-10.2); NEUT % 88.3 % (42.8-82.8); PLATELET COUNT 288 10^3/uL (134-434); RBC 4.06 M/mm3 (4.00-5.60); RDW 14.6 % (11.9-15.9); WHITE BLOOD COUNT 13.6 K/mm3 (4.0-10.0)
[2023-11-01 09:32] LABS: CHLORIDE 119 mmol/L (98-107); POTASSIUM 4.7 mmol/L (3.5-5.1); SODIUM 150 mmol/L (136-145)
[2023-11-01 09:33] LABS: ANION GAP 10 mmol/L (4-13); CALCIUM 8.8 mg/dL (8.5-10.1); CO2 21 mmol/L (21-32); GLUCOSE,RANDOM 130 mg/dL (74-106)
[2023-11-01 09:38] LABS: CREATININE 2.3 mg/dL (0.55-1.3); PHOSPHOROUS 4.4 mg/dL (2.5-4.9)
[2023-11-01] MEDS: levETIRAcetam 500 MG TABLET (FP) PO SCH (09:45)
[2023-11-01] MEDS: POLYETHYLENE GLYCOL (HEALTHYLAX) 3350 17 GM PACKET PO SCH (09:45)
[2023-11-01] MEDS: CARVEDILOL 25 MG TABLET (FP) PO SCH (09:46)
[2023-11-01 10:23] LABS: BLOOD UREA NITROGEN 108.3 mg/dL (7-18)
[2023-11-01] MEDS: SODIUM CHLORIDE 0.45% 1,000 ML IV SCH (15:24)
[2023-11-01] MEDS: POTASSIUM CHLORIDE 10 MEQ in SODIUM CHLORIDE 0.45% 1,000 ML IVPB SCH (15:34)
[2023-11-01] MEDS: PIPERACILLIN/TAZOB 3.375 GM 3.375 GM in DEXTROSE 5%-WATER - 50 ML IVPB SCH (17:17)
[2023-11-01] MEDS: SENNOSIDES 8.8 MG/5 ML SYRUP PO SCH (22:42)
[2023-11-01] MEDS: ATORVASTATIN CA 40 MG TABLET (FP) PO SCH (22:42)
[2023-11-02] MEDS: TAMSULOSIN HCL 0.4 MG CAP PO SCH (08:38)
[2023-11-02 09:35] LABS: BASO % 0.2 % (0-2.0); EOS % 1.5 % (0-4.5); HEMATOCRIT 32.5 % (35.4-49); HEMOGLOBIN 10.3 GM/dL (11.7-16.9); LYMPH % 8.9 % (8-40); MCH 26.4 pg (25.7-33.7); MCHC 31.7 g/dl (32.0-35.9); MEAN PLT VOLUME 7.5 fl (7.5-11.1); MONO % 5.1 % (3.8-10.2); NEUT % 84.3 % (42.8-82.8); PLATELET COUNT 260 10^3/uL (134-434); RBC 3.92 M/mm3 (4.00-5.60); WHITE BLOOD COUNT 12.4 K/mm3 (4.0-10.0)
[2023-11-02 09:50] LABS: POTASSIUM 4.1 mmol/L (3.5-5.1)
[2023-11-02] MEDS ORDERED: PIPERACILLIN/TAZOBACTAM 3.375 GM VIAL IVPB ONE (09:51)
[2023-11-02 09:52] LABS: CALCIUM 8.5 mg/dL (8.5-10.1)
[2023-11-02 09:54] LABS: ALBUMIN 2.2 g/dl (3.4-5.0)
[2023-11-02 09:57] LABS: BILIRUBIN,TOTAL 0.5 mg/dL (0.2-1); CREATININE 1.4 mg/dL (0.55-1.3)
[2023-11-02 10:20] LABS: BLOOD UREA NITROGEN 59.8 mg/dL (7-18)
[2023-11-02 14:59] VITALS: BMI 21.9
[2023-11-02] MEDS: CEFAZOLIN SODIUM 2 GM in DEXTROSE 5%-WATER 100 ML IVPB SCH (17:55)
[2023-11-04 06:45] VITALS: TEMP 98.4
[2023-11-04 09:57] LABS: BASO % 0.2 % (0-2.0); EOS % 1.6 % (0-4.5); HEMATOCRIT 33.6 % (35.4-49); HEMOGLOBIN 11.2 GM/dL (11.7-16.9); LYMPH % 11.3 % (8-40); MCHC 33.4 g/dl (32.0-35.9); MEAN PLT VOLUME 7.7 fl (7.5-11.1); MONO % 5.3 % (3.8-10.2); NEUT % 81.6 % (42.8-82.8); PLATELET COUNT 245 10^3/uL (134-434); RBC 4.15 M/mm3 (4.00-5.60); RDW 14.5 % (11.9-15.9); WHITE BLOOD COUNT 8.5 K/mm3 (4.0-10.0)
[2023-11-04 10:07] LABS: POTASSIUM 3.9 mmol/L (3.5-5.1)
[2023-11-04 10:17] LABS: ALBUMIN 2.2 g/dl (3.4-5.0); CALCIUM 7.9 mg/dL (8.5-10.1)
[2023-11-04 10:20] LABS: CREATININE 0.8 mg/dL (0.55-1.3)
[2023-11-04 10:22] LABS: BILIRUBIN,TOTAL 0.4 mg/dL (0.2-1); TOT PROT 5.9 g/dl (6.4-8.2)
[2023-11-04 10:28] LABS: BLOOD UREA NITROGEN 16.1 mg/dL (7-18)
[2023-11-04 10:35] VITALS: BP 128/80; PULSE 80; RESP 16
== END 2023-11-04 11:55 | DRG 728 ==
LOC: JER 14:17 → JERBED 17:53 → J5S 21:21
PROVIDERS: ADMIT Internal Medicine; ATTEND Internal Medicine
DX: N45.3 Epididymo-orchitis (principal); N39.0 Urinary tract infection, site not specified; N17.9 Acute kidney failure, unspecified; G40.909 Epilepsy, unspecified, not intractable, without status epilepticus; E78.5 Hyperlipidemia, unspecified; E87.5 Hyperkalemia; E88.09 Other disorders of plasma-protein metabolism, not elsewhere classified; I10 Essential (primary) hypertension; R33.9 Retention of urine, unspecified; G30.9 Alzheimer's disease, unspecified; F02.80 Dementia in other diseases classified elsewhere, unspecified severity, without behavioral disturbance, psychotic disturbance, mood disturbance, and anxiety; J44.9 Chronic obstructive pulmonary disease, unspecified; E11.65 Type 2 diabetes mellitus with hyperglycemia
CPT/HCPCS: 36415; 70450-TC; 71045-TC-FY; 72125-TC; 72170-TC-FY; 73630-TC-RT-FY; 76775-TC; 76856-TC; 76870-TC; 80048; 80053; 81003; 82550; 82553; 82962; 83735; 84100; 85025; 85610; 85730; 86850; 86900; 86901; 87040; 87086; 87186; 93005; 93010; 97116-GP; 97161-GP; 99285-25; J0131

== ENCOUNTER 2024-01-24 18:17 | Inpatient (IN) | payer OTHER ==
[2024-01-24 21:19] LABS: BASO % 0.4 % (0-2.0); EOS % 3.8 % (0-4.5); HEMATOCRIT 35.1 % (35.4-49); HEMOGLOBIN 11.4 GM/dL (11.7-16.9); MCH 27.2 pg (25.7-33.7); MCHC 32.5 g/dl (32.0-35.9); MEAN CELL VOLUME 83.6 fl (80-96); MEAN PLT VOLUME 8.1 fl (7.5-11.1); NEUT % 61.8 % (42.8-82.8); PLATELET COUNT 238 10^3/uL (134-434); RDW 16.8 % (11.9-15.9); WHITE BLOOD COUNT 5.1 K/mm3 (4.0-10.0)
[2024-01-24 21:31] LABS: VENOUS BASE EXCESS 1.9 mmol/L (-2-2); VENOUS O2 SATURATION 69.3 % (70-80); VENOUS PCO2 51.5 mmHg (38-52); VENOUS PH 7.357 (7.310-7.410)
[2024-01-24 21:50] LABS: POTASSIUM 3.7 mmol/L (3.5-5.1)
[2024-01-24 21:52] LABS: CALCIUM 7.8 mg/dL (8.5-10.1)
[2024-01-24 21:53] LABS: BLOOD UREA NITROGEN 10.8 mg/dL (7-18)
[2024-01-24 21:56] LABS: CREATININE 0.5 mg/dL (0.55-1.3)
[2024-01-24 21:57] LABS: BILIRUBIN,TOTAL 1.1 mg/dL (0.2-1)
[2024-01-24] MEDS ORDERED: ACETAMINOPHEN INJECTION 100 ML IVPB ONE (22:31)
[2024-01-24] MEDS ORDERED: VALPROATE SODIUM 500 MG/5 ML VIAL ONE (22:31)
[2024-01-24] MEDS: VALPROATE SODIUM 500 MG/5 ML VIAL IVPB ONE (22:46)
[2024-01-24] MEDS: ACETAMINOPHEN 1000 MG/100 ML BAG IVPB ONE (22:46)
[2024-01-24 23:06] LABS: MAGNESIUM 1.3 mg/dL (1.8-2.4)
[2024-01-24] MEDS ORDERED: MAGNESIUM SULF 50% (8.12 MEQ/2 ML-1 GM VIAL) IVPB ONE (23:06)
[2024-01-24] MEDS ORDERED: VALPROATE SODIUM 500 MG/5 ML VIAL IVPB ONE (23:20)
[2024-01-25] MEDS: VALPROATE SODIUM INJECTION 1,000 MG in DEXTROSE 5%-WATER - 100 ML IVPB ONE (01:41)
[2024-01-25] MEDS: MAGNESIUM 2GM/50ML STERILE WATER IVPB IVPB ONE (01:41)
[2024-01-25] MEDS ORDERED: NITROPRUSSIDE SODIUM 25 MG/1 ML ML IVPB ONE (02:07)
[2024-01-25] MEDS ORDERED: NITROGLYCERIN 25MG/D5W 250ML 25 MG/250 ML ML IVPB ONE (02:08)
[2024-01-25 06:15] LABS: EPI CELLS 28 /uL (0-25.1); HYALINE CASTS 2 /uL (0-3.1); PH,URINE 6.5 (5.0-8.0); URINE APPEARANCE CLEAR; URINE BACTERIA 1 /uL (0-1359); URINE BILIRUBIN NEGATIVE (NEGATIVE); URINE COLOR DK YELLOW; URINE GLUCOSE (UA) NEGATIVE (NEGATIVE); URINE KETONE 1+ (NEGATIVE); URINE LEUK ESTERASE TRACE (NEGATIVE); URINE NITRITE NEGATIVE (NEGATIVE); URINE PROTEIN 1+ (NEGATIVE); URINE RBC 30 /uL (0-23.9); URINE WBC 93 /uL (0-25.8)
[2024-01-25] MEDS: ALBUTEROL SO4 2.5/IPRATROPIUM 0.5 INH SOL 3 ML VIAL.NEB. NEB SCH (08:00)
[2024-01-25] MEDS ORDERED: ALBUTEROL SO4 2.5/IPRATROPIUM 0.5 INH SOL 3 ML VIAL.NEB. NEB ONE ×2 (08:09→16:04)
[2024-01-25] MEDS: levETIRAcetam 500 MG/5 ML INJECTION VIAL IVPB SCH ×2 (09:46→21:35)
[2024-01-25 11:43] LABS: CHLORIDE 106 mmol/L (98-107); POTASSIUM 5.2 mmol/L (3.5-5.1); SODIUM 139 mmol/L (136-145)
[2024-01-25 11:51] LABS: ANION GAP 7 mmol/L (4-13); CALCIUM 8.4 mg/dL (8.5-10.1); CO2 27 mmol/L (21-32); MAGNESIUM 1.9 mg/dL (1.8-2.4)
[2024-01-25 11:52] LABS: BLOOD UREA NITROGEN 15.1 mg/dL (7-18)
[2024-01-25 11:55] LABS: CREATININE 0.6 mg/dL (0.55-1.3); PHOSPHOROUS 4.1 mg/dL (2.5-4.9)
[2024-01-25 11:56] LABS: HEMATOCRIT 45.9 % (35.4-49); HEMOGLOBIN 14.9 GM/dL (11.7-16.9); MCH 27.3 pg (25.7-33.7); MCHC 32.4 g/dl (32.0-35.9); MEAN CELL VOLUME 84.1 fl (80-96); RBC 5.46 M/mm3 (4.00-5.60); RDW 16.7 % (11.9-15.9); WHITE BLOOD COUNT 4.7 K/mm3 (4.0-10.0)
[2024-01-25 11:57] LABS: GLUCOSE,RANDOM 45 mg/dL (74-106)
[2024-01-25] MEDS ORDERED: DEXTROSE 50%-WATER 25 GM/50 ML DISP.SYRIN ONE (12:13)
[2024-01-25] MEDS: DEXTROSE 50%-WATER - 25 GM/50 ML VIAL IVPUSH ONE (12:16)
[2024-01-25] MEDS ORDERED: D5-1/2NS+20 MEQ KCL - 20 MEQ/1,000 ML INFUS.BAG IV SCH (17:45)
[2024-01-25] MEDS: WATER IVPB ONE (17:55)
[2024-01-25] MEDS: DEXTROSE 5% IVPB ONE (17:55)
[2024-01-25] MEDS: LEVETIRACETAM IVPB ONE (17:55)
[2024-01-25] MEDS: DEXTROSE 5%-0.45% SALINE 1,000 ML IV SCH (17:55)
[2024-01-25] MEDS: levETIRAcetam 500 MG/5 ML INJECTION VIAL IVPB ONE (18:04)
[2024-01-25] MEDS: CARVEDILOL 25 MG TABLET (FP) PO SCH (21:36)
[2024-01-25] MEDS: ATORVASTATIN CA 40 MG TABLET (FP) PO SCH (21:36)
[2024-01-26] MEDS: TAMSULOSIN HCL 0.4 MG CAP PO SCH (10:19)
[2024-01-27] MEDS: lamoTRIgine 25 MG TABLET PO SCH (09:57)
[2024-01-27] MEDS: MULTIVITAMINS (DAILY MVI) TABLET (FP) PO SCH (14:38)
[2024-01-27] MEDS: ASCORBIC ACID 500 MG TABLET (FP) PO SCH (14:38)
[2024-01-28 09:22] LABS: POTASSIUM 3.5 mmol/L (3.5-5.1)
[2024-01-28 09:24] LABS: CALCIUM 7.7 mg/dL (8.5-10.1)
[2024-01-28 09:28] LABS: CREATININE 0.6 mg/dL (0.55-1.3)
[2024-01-28] MEDS ORDERED: INSULIN ASPART SLIDING SCALE (NOVOLOG) 1 VIAL SQ ONE (17:15)
[2024-01-28 19:18] VITALS: BMI 21.8
[2024-01-30 08:45] LABS: POTASSIUM 3.3 mmol/L (3.5-5.1)
[2024-01-30 08:48] LABS: ALBUMIN 2.4 g/dl (3.4-5.0)
[2024-01-30 08:51] LABS: CREATININE 0.5 mg/dL (0.55-1.3)
[2024-01-30 08:53] LABS: BILIRUBIN,TOTAL 0.8 mg/dL (0.2-1); CALCIUM 7.2 mg/dL (8.5-10.1); TOT PROT 5.3 g/dl (6.4-8.2)
[2024-01-30 09:04] LABS: BASO % 0.7 % (0-2.0); EOS % 7.1 % (0-4.5); HEMATOCRIT 31.9 % (35.4-49); HEMOGLOBIN 10.6 GM/dL (11.7-16.9); LYMPH % 25.2 % (8-40); MCH 27.3 pg (25.7-33.7); MCHC 33.2 g/dl (32.0-35.9); MEAN PLT VOLUME 8.4 fl (7.5-11.1); MONO % 9.9 % (3.8-10.2); NEUT % 57.1 % (42.8-82.8); PLATELET COUNT 211 10^3/uL (134-434); RBC 3.89 M/mm3 (4.00-5.60); WHITE BLOOD COUNT 4.7 K/mm3 (4.0-10.0)
[2024-01-30] MEDS: levETIRAcetam 500 MG/5 ML INJECTION VIAL IVPB ONE (16:44)
[2024-01-30] MEDS: KCL 10 MEQ IVPB 10 MEQ/100 ML INFUS.BAG IVPB SCH (18:27)
[2024-01-30] MEDS: D5-1/2NS+30 MEQ KCL - 30 MEQ/1,000 ML INFUS.BAG IV SCH (21:26)
[2024-01-31] MEDS ORDERED: METOPROLOL TARTRATE 5 MG/5 ML VIAL IVPUSH PRN (07:57)
[2024-01-31 08:14] LABS: BASO % 0.4 % (0-2.0); EOS % 4.7 % (0-4.5); HEMATOCRIT 32.6 % (35.4-49); HEMOGLOBIN 10.8 GM/dL (11.7-16.9); LYMPH % 20.2 % (8-40); MCH 27.4 pg (25.7-33.7); MCHC 33.3 g/dl (32.0-35.9); MEAN CELL VOLUME 82.4 fl (80-96); MEAN PLT VOLUME 7.8 fl (7.5-11.1); MONO % 10.7 % (3.8-10.2); PLATELET COUNT 251 10^3/uL (134-434); RBC 3.95 M/mm3 (4.00-5.60); RDW 15.9 % (11.9-15.9); WHITE BLOOD COUNT 5.5 K/mm3 (4.0-10.0)
[2024-01-31 08:22] LABS: POTASSIUM 3.4 mmol/L (3.5-5.1)
[2024-01-31 08:23] LABS: CALCIUM 8.2 mg/dL (8.5-10.1)
[2024-01-31 08:24] LABS: ALBUMIN 2.8 g/dl (3.4-5.0); BLOOD UREA NITROGEN 6.6 mg/dL (7-18); MAGNESIUM 1.4 mg/dL (1.8-2.4)
[2024-01-31 08:27] LABS: CREATININE 0.6 mg/dL (0.55-1.3)
[2024-01-31 08:29] LABS: TOT PROT 5.8 g/dl (6.4-8.2)
[2024-01-31] MEDS: PIPERACILLIN/TAZOB 3.375 GM 3.375 GM in DEXTROSE 5%-WATER - 50 ML IVPB SCH (12:01)
[2024-01-31] MEDS: KCL 10 MEQ IVPB 10 MEQ/100 ML INFUS.BAG IVPB SCH (12:06)
[2024-01-31] MEDS: MAGNESIUM SULF 50% (8.12 MEQ/2 ML-1 GM VIAL) IVPB ONE (12:08)
[2024-01-31] MEDS ORDERED: clonazePAM 0.5 MG TABLET PO PRN (14:11)
[2024-02-01] MEDS: VALPROATE SODIUM 250 MG/5 ML UNIT DOSE CUP NGT SCH (00:06)
[2024-02-01] MEDS: THIAMINE HCL 200 MG/2 ML VIAL IVPB SCH (10:27)
[2024-02-01] MEDS: INSULIN ASPART SLIDING SCALE (NOVOLOG) 1 VIAL SQ SCH (12:55)
[2024-02-03] MEDS: hydrALAZINE HCL 20 MG/ML VIAL IM PRN (15:07)
[2024-02-03] MEDS: DEXTROSE 5%-NORMAL SALINE 1,000 ML IV SCH (17:33)
[2024-02-04] MEDS ORDERED: METOPROLOL TARTRATE 5 MG/5 ML VIAL IVPUSH PRN (13:07)
[2024-02-04] MEDS: PIPERACILLIN/TAZOB 3.375 GM 3.375 GM in DEXTROSE 5%-WATER - 50 ML IVPB SCH ×2 (13:10→23:55)
[2024-02-04] MEDS: DIVALPROEX NA *ER* EXTEND REL 500 MG TABLET.SA (FP) PO SCH (13:12)
[2024-02-04] MEDS: VALPROATE SODIUM 250 MG/5 ML UNIT DOSE CUP NGT SCH (17:10)
[2024-02-04] MEDS: INSULIN ASPART SLIDING SCALE (NOVOLOG) 1 VIAL SQ SCH (17:10)
[2024-02-04] MEDS: levETIRAcetam 500 MG/5 ML INJECTION VIAL IVPB SCH (21:41)
[2024-02-04] MEDS: hydrALAZINE HCL 20 MG/ML VIAL IM PRN (21:42)
[2024-02-04] MEDS: CARVEDILOL 25 MG TABLET (FP) PO SCH (23:53)
[2024-02-04] MEDS: ATORVASTATIN CA 40 MG TABLET (FP) PO SCH (23:53)
[2024-02-04] MEDS: ASCORBIC ACID 500 MG/5 ML UNIT DOSE CUP NGT SCH (23:54)
[2024-02-05] MEDS ORDERED: TAMSULOSIN HCL 0.4 MG CAP PO SCH (08:30)
[2024-02-05] MEDS: AMOX TR/POTASSIUM CLAVULANATE 600 MG/5 ML GT SCH (09:50)
[2024-02-05] MEDS: MULTIVIT-MINERALS ORAL LIQUID NGT SCH (10:37)
[2024-02-05] MEDS: THIAMINE HCL 200 MG/2 ML VIAL IVPB SCH (10:39)
[2024-02-05 11:14] LABS: HEMATOCRIT 33.7 % (35.4-49); HEMOGLOBIN 11.2 GM/dL (11.7-16.9); MCH 26.9 pg (25.7-33.7); MCHC 33.1 g/dl (32.0-35.9); MEAN CELL VOLUME 81.3 fl (80-96); MEAN PLT VOLUME 7.2 fl (7.5-11.1); PLATELET COUNT 365 10^3/uL (134-434); RBC 4.15 M/mm3 (4.00-5.60); RDW 16.3 % (11.9-15.9); WHITE BLOOD COUNT 7.3 K/mm3 (4.0-10.0)
[2024-02-05 11:26] LABS: CHLORIDE 101 mmol/L (98-107); SODIUM 142 mmol/L (136-145)
[2024-02-05 11:28] LABS: ALBUMIN 2.5 g/dl (3.4-5.0); CALCIUM 8.1 mg/dL (8.5-10.1); CO2 31 mmol/L (21-32); GLUCOSE,RANDOM 233 mg/dL (74-106)
[2024-02-05 11:31] LABS: CREATININE 0.5 mg/dL (0.55-1.3); SGOT/AST 15 U/L (15-37); SGPT/ALT 15 U/L (13-61)
[2024-02-05 11:33] LABS: TOT PROT 5.7 g/dl (6.4-8.2)
[2024-02-05 11:34] LABS: ALK PHOS 79 U/L (45-117)
[2024-02-05 11:39] LABS: ANION GAP 10 mmol/L (4-13); BLOOD UREA NITROGEN 2.2 mg/dL (7-18); POTASSIUM 2.1 mmol/L (3.5-5.1)
[2024-02-05] MEDS: PIPERACILLIN/TAZOB 3.375 GM 3.375 GM in DEXTROSE 5%-WATER - 50 ML IVPB ONE (11:52)
[2024-02-05] MEDS: KCL 10 MEQ IVPB 10 MEQ/100 ML INFUS.BAG IVPB SCH (13:48)
[2024-02-05] MEDS: POTASSIUM CHLORIDE ORAL LIQUID 20 MEQ/15 ML GT SCH (14:39)
[2024-02-05] MEDS: D5-NS + 20 MEQ KCL - 20 MEQ/1,000 ML INFUS.BAG IV SCH (17:08)
[2024-02-05] MEDS: DEXTROSE 5%-NORMAL SALINE 990 ML with POTASSIUM CHLORIDE 20 MEQ IV SCH (17:09)
[2024-02-06 10:33] LABS: BLOOD UREA NITROGEN 3.3 mg/dL (7-18); CALCIUM 7.7 mg/dL (8.5-10.1); CHLORIDE 108 mmol/L (98-107); CO2 31 mmol/L (21-32); CREATININE 0.6 mg/dL (0.55-1.3); MAGNESIUM 1.5 mg/dL (1.8-2.4); SODIUM 147 mmol/L (136-145)
[2024-02-06 10:35] LABS: GLUCOSE,RANDOM 237 mg/dL (74-106)
[2024-02-06 10:39] LABS: ANION GAP 7 mmol/L (4-13); POTASSIUM 2.7 mmol/L (3.5-5.1)
[2024-02-06] MEDS: KCL 10 MEQ IVPB 10 MEQ/100 ML INFUS.BAG IVPB SCH (12:10)
[2024-02-07] MEDS: KCL 10 MEQ IVPB 10 MEQ/100 ML INFUS.BAG IVPB SCH (11:59)
[2024-02-07 13:08] LABS: BASO % 0.4 % (0-2.0); EOS % 0.8 % (0-4.5); HEMATOCRIT 32.4 % (35.4-49); HEMOGLOBIN 10.5 GM/dL (11.7-16.9); LYMPH % 12.2 % (8-40); MCHC 32.5 g/dl (32.0-35.9); MEAN CELL VOLUME 82.9 fl (80-96); MEAN PLT VOLUME 7.3 fl (7.5-11.1); MONO % 5.4 % (3.8-10.2); NEUT % 81.2 % (42.8-82.8); PLATELET COUNT 297 10^3/uL (134-434); RBC 3.91 M/mm3 (4.00-5.60); WHITE BLOOD COUNT 7.5 K/mm3 (4.0-10.0)
[2024-02-07 13:26] LABS: POTASSIUM 3.7 mmol/L (3.5-5.1)
[2024-02-07 13:27] LABS: ALBUMIN 2.4 g/dl (3.4-5.0)
[2024-02-07 13:29] LABS: BLOOD UREA NITROGEN 6.6 mg/dL (7-18)
[2024-02-07 13:30] LABS: CREATININE 0.8 mg/dL (0.55-1.3)
[2024-02-07 13:33] LABS: BILIRUBIN,TOTAL 0.6 mg/dL (0.2-1); TOT PROT 5.8 g/dl (6.4-8.2)
[2024-02-07] MEDS: POLYETHYLENE GLYCOL (HEALTHYLAX) 3350 17 GM PACKET GT SCH (13:56)
[2024-02-07] MEDS: D5-1/2NS+20 MEQ KCL - 20 MEQ/1,000 ML INFUS.BAG IV SCH (17:17)
[2024-02-07] MEDS: INSULIN (LEVEMIR) 100 UNITS/ML UNITS SQ SCH (21:39)
[2024-02-08] MEDS: ACETAMINOPHEN 1000 MG/100 ML BAG IVPB ONE (03:28)
[2024-02-08 04:42] LABS: EPI CELLS 1 /uL (0-25.1); HYALINE CASTS 1 /uL (0-3.1); URINE APPEARANCE CLOUDY; URINE BACTERIA 5222 /uL (0-1359); URINE BILIRUBIN 1+ (NEGATIVE); URINE COLOR DK YELLOW; URINE GLUCOSE (UA) NEGATIVE (NEGATIVE); URINE KETONE 1+ (NEGATIVE); URINE LEUK ESTERASE 2+ (NEGATIVE); URINE NITRITE POSITIVE (NEGATIVE); URINE PROTEIN 3+ (NEGATIVE); URINE RBC 2134 /uL (0-23.9); URINE WBC 205 /uL (0-25.8)
[2024-02-08 12:43] LABS: BASO % 0.1 % (0-2.0); EOS % 0.1 % (0-4.5); HEMATOCRIT 34.8 % (35.4-49); HEMOGLOBIN 11.1 GM/dL (11.7-16.9); LYMPH % 11.1 % (8-40); MCH 26.7 pg (25.7-33.7); MEAN CELL VOLUME 83.3 fl (80-96); MONO % 7.3 % (3.8-10.2); NEUT % 81.4 % (42.8-82.8); PLATELET COUNT 292 10^3/uL (134-434); RBC 4.18 M/mm3 (4.00-5.60); RDW 16.1 % (11.9-15.9); WHITE BLOOD COUNT 10.1 K/mm3 (4.0-10.0)
[2024-02-08 13:06] LABS: POTASSIUM 5.2 mmol/L (3.5-5.1)
[2024-02-08 13:09] LABS: ALBUMIN 2.4 g/dl (3.4-5.0)
[2024-02-08 13:12] LABS: CREATININE 0.8 mg/dL (0.55-1.3)
[2024-02-08 13:13] LABS: BILIRUBIN,TOTAL 0.6 mg/dL (0.2-1); TOT PROT 6.1 g/dl (6.4-8.2)
[2024-02-08] MEDS: DEXTROSE 5%-WATER - 1,000 ML IV SCH (14:20)
[2024-02-08] MEDS: PIPERACILLIN/TAZOB 3.375 GM 3.375 GM in DEXTROSE 5%-WATER - 50 ML IVPB SCH (14:23)
[2024-02-08] MEDS: POLYETHYLENE GLYCOL (HEALTHYLAX) 3350 17 GM PACKET GT SCH (22:09)
[2024-02-09] MEDS: SODIUM CHLORIDE 250 ML IV STA ×2 (06:12→06:35)
[2024-02-09] MEDS ORDERED: DEXTROSE 50%-WATER 25 GM/50 ML DISP.SYRIN ONE (06:54)
[2024-02-09] MEDS: ACETAMINOPHEN 1000 MG/100 ML BAG IVPB ONE (07:57)
[2024-02-09] MEDS: DEXTROSE 50%-WATER 25 GM/50 ML DISP.SYRIN IVPUSH ONE (07:57)
[2024-02-09 09:45] LABS: POTASSIUM 4.5 mmol/L (3.5-5.1)
[2024-02-09 09:57] LABS: CALCIUM 8.1 mg/dL (8.5-10.1)
[2024-02-09 09:58] LABS: ALBUMIN 2.2 g/dl (3.4-5.0)
[2024-02-09 10:00] LABS: BILIRUBIN,TOTAL 0.6 mg/dL (0.2-1); CREATININE 0.8 mg/dL (0.55-1.3); TOT PROT 5.6 g/dl (6.4-8.2)
[2024-02-11 09:27] LABS: HEMATOCRIT 32.3 % (35.4-49); HEMOGLOBIN 10.9 GM/dL (11.7-16.9); MCH 27.3 pg (25.7-33.7); MCHC 33.6 g/dl (32.0-35.9); MEAN CELL VOLUME 81.3 fl (80-96); MEAN PLT VOLUME 8.8 fl (7.5-11.1); PLATELET COUNT 241 10^3/uL (134-434); RBC 3.97 M/mm3 (4.00-5.60); RDW 15.8 % (11.9-15.9); WHITE BLOOD COUNT 10.8 K/mm3 (4.0-10.0)
[2024-02-11 09:32] LABS: INR 1.45 (0.83-1.09); PROTHROMBIN TIME (PATIENT) 16.2 SEC (9.7-13.0)
[2024-02-11 09:35] LABS: ACTIVATED PTT 29.1 SECONDS (25.2-36.5)
[2024-02-11 09:48] LABS: POTASSIUM 3.5 mmol/L (3.5-5.1)
[2024-02-11 09:50] LABS: CALCIUM 7.4 mg/dL (8.5-10.1)
[2024-02-11 09:51] LABS: BLOOD UREA NITROGEN 15.4 mg/dL (7-18)
[2024-02-11 09:53] LABS: CREATININE 0.6 mg/dL (0.55-1.3)
[2024-02-11 09:55] LABS: BILIRUBIN,TOTAL 0.4 mg/dL (0.2-1)
[2024-02-11 10:05] LABS: ALBUMIN 1.7 g/dl (3.4-5.0)
[2024-02-11 10:46] LABS: ANISOCYTOSIS 0; MACROCYTOSIS 0
[2024-02-11] MEDS: CEFTAZIDIME/AVIBACTAM 2.5 GM in DEXTROSE 5%-WATER - 250 ML IVPB SCH (16:34)
[2024-02-11] MEDS: KCL 10 MEQ IVPB 10 MEQ/100 ML INFUS.BAG IVPB SCH (19:50)
[2024-02-12 13:04] LABS: CHLORIDE 101 mmol/L (98-107); POTASSIUM 4.5 mmol/L (3.5-5.1); SODIUM 134 mmol/L (136-145)
[2024-02-12 13:07] LABS: ANION GAP 9 mmol/L (4-13); BLOOD UREA NITROGEN 7.7 mg/dL (7-18); CO2 24 mmol/L (21-32)
[2024-02-12 13:09] LABS: SGPT/ALT 107 U/L (13-61)
[2024-02-12 13:10] LABS: CREATININE 0.8 mg/dL (0.55-1.3); SGOT/AST 139 U/L (15-37)
[2024-02-12 13:11] LABS: BILIRUBIN,TOTAL 0.3 mg/dL (0.2-1); TOT PROT 4.2 g/dl (6.4-8.2)
[2024-02-12 13:12] LABS: ALK PHOS 92 U/L (45-117)
[2024-02-12 13:30] LABS: GLUCOSE,RANDOM 750 mg/dL (74-106)
[2024-02-12 13:32] LABS: ALBUMIN 1.1 g/dl (3.4-5.0); CALCIUM 5.9 mg/dL (8.5-10.1)
[2024-02-13 09:13] LABS: BASO % 0.5 % (0-2.0); EOS % 0.5 % (0-4.5); HEMATOCRIT 34.1 % (35.4-49); HEMOGLOBIN 10.9 GM/dL (11.7-16.9); LYMPH % 10.8 % (8-40); MCH 26.3 pg (25.7-33.7); MCHC 32.1 g/dl (32.0-35.9); MEAN PLT VOLUME 9.2 fl (7.5-11.1); NEUT % 79.2 % (42.8-82.8); PLATELET COUNT 265 10^3/uL (134-434); RBC 4.15 M/mm3 (4.00-5.60); RDW 16.5 % (11.9-15.9); WHITE BLOOD COUNT 11.1 K/mm3 (4.0-10.0)
[2024-02-14] MEDS: D5-1/2NS+20 MEQ KCL - 20 MEQ/1,000 ML INFUS.BAG IV SCH (13:03)
[2024-02-14 13:26] LABS: BLOOD UREA NITROGEN 3.6 mg/dL (7-18); MAGNESIUM 1.9 mg/dL (1.8-2.4)
[2024-02-14 13:29] LABS: CREATININE 0.5 mg/dL (0.55-1.3)
[2024-02-14 13:30] LABS: ALBUMIN 1.5 g/dl (3.4-5.0); BILIRUBIN,TOTAL 0.6 mg/dL (0.2-1); CALCIUM 7.6 mg/dL (8.5-10.1); TOT PROT 5.3 g/dl (6.4-8.2)
[2024-02-14] MEDS: DEXTROSE 5%-0.45% SALINE 1,000 ML IV SCH (16:22)
[2024-02-15 11:33] LABS: CHLORIDE 101 mmol/L (98-107); POTASSIUM 5.7 mmol/L (3.5-5.1); SODIUM 135 mmol/L (136-145)
[2024-02-15 11:37] LABS: ALBUMIN 1.6 g/dl (3.4-5.0); ANION GAP 3 mmol/L (4-13); CALCIUM 7.8 mg/dL (8.5-10.1); CO2 31 mmol/L (21-32); GLUCOSE,RANDOM 182 mg/dL (74-106)
[2024-02-15 11:41] LABS: CREATININE 0.5 mg/dL (0.55-1.3); SGOT/AST 30 U/L (15-37); SGPT/ALT 54 U/L (13-61)
[2024-02-15 11:42] LABS: BILIRUBIN,TOTAL 0.7 mg/dL (0.2-1); TOT PROT 5.4 g/dl (6.4-8.2)
[2024-02-15 11:43] LABS: ALK PHOS 101 U/L (45-117)
[2024-02-15 11:53] LABS: BLOOD UREA NITROGEN 2.9 mg/dL (7-18)
[2024-02-16 10:11] LABS: POTASSIUM 4.9 mmol/L (3.5-5.1)
[2024-02-16 10:13] LABS: CALCIUM 7.6 mg/dL (8.5-10.1)
[2024-02-16 10:15] LABS: ALBUMIN 1.5 g/dl (3.4-5.0); BLOOD UREA NITROGEN 3.3 mg/dL (7-18)
[2024-02-16 10:17] LABS: CREATININE 0.4 mg/dL (0.55-1.3)
[2024-02-16 10:18] LABS: TOT PROT 5.4 g/dl (6.4-8.2)
[2024-02-16 10:20] LABS: BILIRUBIN,TOTAL 0.5 mg/dL (0.2-1)
[2024-02-16] MEDS: TAMSULOSIN HCL 0.4 MG CAP PO SCH (18:06)
[2024-02-17] MEDS ORDERED: FENTANYL CITRATE/PF 50 MCG/ML VIAL ONE (11:55)
[2024-02-17] MEDS: FENTANYL CITRATE/PF 50 MCG/ML VIAL IVPB ONE (11:57)
[2024-02-18 10:40] LABS: BASO % 0.2 % (0-2.0); EOS % 1.2 % (0-4.5); HEMATOCRIT 25.4 % (35.4-49); HEMOGLOBIN 8.6 GM/dL (11.7-16.9); LYMPH % 16.2 % (8-40); MCH 26.9 pg (25.7-33.7); MCHC 33.8 g/dl (32.0-35.9); MEAN CELL VOLUME 79.6 fl (80-96); MEAN PLT VOLUME 7.8 fl (7.5-11.1); NEUT % 74.4 % (42.8-82.8); PLATELET COUNT 361 10^3/uL (134-434); RBC 3.19 M/mm3 (4.00-5.60); RDW 16.2 % (11.9-15.9); WHITE BLOOD COUNT 6.9 K/mm3 (4.0-10.0)
[2024-02-18 10:45] LABS: CHLORIDE 103 mmol/L (98-107); POTASSIUM 4.1 mmol/L (3.5-5.1); SODIUM 141 mmol/L (136-145)
[2024-02-18 10:55] LABS: CALCIUM 7.9 mg/dL (8.5-10.1)
[2024-02-18 10:56] LABS: ANION GAP 2 mmol/L (4-13); CO2 36 mmol/L (21-32); GLUCOSE,RANDOM 89 mg/dL (74-106)
[2024-02-18 10:57] LABS: BLOOD UREA NITROGEN 2.6 mg/dL (7-18)
[2024-02-18 10:59] LABS: CREATININE 0.3 mg/dL (0.55-1.3)
[2024-02-18] MEDS ORDERED: DEXTROSE 50%-WATER 25 GM/50 ML DISP.SYRIN ONE (18:12)
[2024-02-18] MEDS: DEXTROSE 50%-WATER - 25 GM/50 ML VIAL IVPUSH ONE (19:27)
[2024-02-19 15:19] VITALS: RESP 18
[2024-02-19] MEDS: VALPROATE SODIUM 250 MG/5 ML UNIT DOSE CUP GT SCH (17:35)
[2024-02-19] MEDS ORDERED: levETIRAcetam 500 MG TABLET (FP) PO SCH (22:00)
[2024-02-19] MEDS: levETIRAcetam 500 MG/5 ML ORAL SOLUTION (UNIT-DOSE CUPS) GT SCH (22:14)
[2024-02-19] MEDS: CARVEDILOL 25 MG TABLET (FP) GT SCH (22:17)
[2024-02-19] MEDS: ATORVASTATIN CA 80 MG TABLET (FP) GT SCH (22:18)
[2024-02-20] MEDS: THIAMINE HCL 200 MG/2 ML VIAL IM SCH (10:07)
[2024-02-20 15:28] VITALS: BP 129/80; PULSE 81; TEMP 98.2
== END 2024-02-20 17:06 | DRG 100 ==
LOC: JER 18:17 → JERBED 01-25 03:21 → OBSVTOIN 01-25 09:24 → J4W 01-25 20:42 → J5S 02-04 12:52 → J2C 02-07 13:27 → J5S 02-07 13:31
PROVIDERS: ADMIT Internal Medicine; ATTEND Family Medicine
PROC: 4A10X4Z Monitoring of Central Nervous Electrical Activity, External Approach (ICD-10-PCS; 2024-01-26)
PROC: 0DH63UZ Insertion of Feeding Device into Stomach, Percutaneous Approach (ICD-10-PCS; principal; 2024-02-17)
DX: G40.909 Epilepsy, unspecified, not intractable, without status epilepticus (principal); J18.9 Pneumonia, unspecified organism; L89.514 Pressure ulcer of right ankle, stage 4; L89.613 Pressure ulcer of right heel, stage 3; K56.7 Ileus, unspecified; E87.0 Hyperosmolality and hypernatremia; N39.0 Urinary tract infection, site not specified; I69.351 Hemiplegia and hemiparesis following cerebral infarction affecting right dominant side; G30.9 Alzheimer's disease, unspecified; F02.80 Dementia in other diseases classified elsewhere, unspecified severity, without behavioral disturbance, psychotic disturbance, mood disturbance, and anxiety; E78.5 Hyperlipidemia, unspecified; E83.42 Hypomagnesemia; G93.89 Other specified disorders of brain; E87.6 Hypokalemia; N40.1 Benign prostatic hyperplasia with lower urinary tract symptoms; R33.8 Other retention of urine; B96.20 Unspecified Escherichia coli [E. coli] as the cause of diseases classified elsewhere; R13.10 Dysphagia, unspecified; N43.3 Hydrocele, unspecified; R62.7 Adult failure to thrive; Z68.20 Body mass index [BMI] 20.0-20.9, adult; I45.10 Unspecified right bundle-branch block; K59.81 Ogilvie syndrome; R25.1 Tremor, unspecified; J44.9 Chronic obstructive pulmonary disease, unspecified; R91.8 Other nonspecific abnormal finding of lung field; E11.9 Type 2 diabetes mellitus without complications; Z99.81 Dependence on supplemental oxygen; Z85.46 Personal history of malignant neoplasm of prostate; Z74.01 Bed confinement status
CPT/HCPCS: 0241U-QW; 36415; 49440; 70450-TC; 70551-TC; 71045-TC-FY; 74018-TC-FY; 74019-TC-FY; 80048; 80053; 81003; 82803; 82962; 83036; 83605; 83735; 84100; 84443; 84484; 85025; 85027; 85610; 85730; 87040; 87086; 87184; 87186; 93005; 93010; 94640; 95816; 99285-25; G0378; J0131

== ENCOUNTER 2024-02-23 23:09 | Inpatient (IN) | payer OTHER ==
[2024-02-23 23:31] VITALS: BMI 26.6
[2024-02-24 02:14] LABS: BASO % 0.3 % (0-2.0); EOS % 0.5 % (0-4.5); HEMATOCRIT 24.4 % (35.4-49); HEMOGLOBIN 8.2 GM/dL (11.7-16.9); LYMPH % 13.9 % (8-40); MCH 27.6 pg (25.7-33.7); MCHC 33.7 g/dl (32.0-35.9); MEAN CELL VOLUME 81.8 fl (80-96); MEAN PLT VOLUME 8.2 fl (7.5-11.1); MONO % 6.3 % (3.8-10.2); PLATELET COUNT 335 10^3/uL (134-434); RBC 2.98 M/mm3 (4.00-5.60); RDW 17.2 % (11.9-15.9); WHITE BLOOD COUNT 8.7 K/mm3 (4.0-10.0)
[2024-02-24 02:28] LABS: INR 1.17 (0.83-1.09); PROTHROMBIN TIME (PATIENT) 13.2 SEC (9.7-13.0)
[2024-02-24 02:31] LABS: ACTIVATED PTT 28.7 SECONDS (25.2-36.5)
[2024-02-24 02:34] LABS: POTASSIUM 4.1 mmol/L (3.5-5.1)
[2024-02-24 02:36] LABS: CALCIUM 7.5 mg/dL (8.5-10.1)
[2024-02-24 02:37] LABS: ALBUMIN 1.6 g/dl (3.4-5.0); BLOOD UREA NITROGEN 7.2 mg/dL (7-18); MAGNESIUM 1.7 mg/dL (1.8-2.4)
[2024-02-24 02:40] LABS: CREATININE 0.3 mg/dL (0.55-1.3)
[2024-02-24 02:41] LABS: BILIRUBIN,TOTAL 0.5 mg/dL (0.2-1); TOT PROT 5.7 g/dl (6.4-8.2)
[2024-02-24] MEDS ORDERED: ALBUTEROL SO4 2.5/IPRATROPIUM 0.5 INH SOL 3 ML VIAL.NEB. NEB PRN (08:12)
[2024-02-24] MEDS ORDERED: MAGNESIUM 1GM/D5W - 1 GM/100 ML IVPB IVPB ONE (09:40)
[2024-02-24] MEDS ORDERED: CARVEDILOL 25 MG TABLET (FP) ONE (09:40)
[2024-02-24] MEDS: MAGNESIUM 1GM/D5W 100ML - 100 ML IVPB IVPB ONE (09:44)
[2024-02-24] MEDS: CARVEDILOL 25 MG TABLET (FP) PO SCH (09:50)
[2024-02-24] MEDS: levETIRAcetam 500 MG/5 ML ORAL SOLUTION (UNIT-DOSE CUPS) NGT SCH (09:50)
[2024-02-24] MEDS: VALPROATE SODIUM 250 MG/5 ML UNIT DOSE CUP NGT SCH (12:37)
[2024-02-24] MEDS: ASPIRIN 81 MG CHEWABLE TABLETS PO SCH (18:20)
[2024-02-24] MEDS: ATORVASTATIN CA 80 MG TABLET (FP) PO SCH (22:18)
[2024-02-25 08:05] LABS: BASO % 0.6 % (0-2.0); EOS % 0.8 % (0-4.5); HEMATOCRIT 24.7 % (35.4-49); HEMOGLOBIN 8.4 GM/dL (11.7-16.9); LYMPH % 15.8 % (8-40); MCH 28.1 pg (25.7-33.7); MCHC 33.8 g/dl (32.0-35.9); MEAN CELL VOLUME 83.1 fl (80-96); MEAN PLT VOLUME 8.1 fl (7.5-11.1); MONO % 8.4 % (3.8-10.2); NEUT % 74.4 % (42.8-82.8); PLATELET COUNT 321 10^3/uL (134-434); RBC 2.98 M/mm3 (4.00-5.60); RDW 17.5 % (11.9-15.9); WHITE BLOOD COUNT 6.5 K/mm3 (4.0-10.0)
[2024-02-25 08:16] LABS: POTASSIUM 4.5 mmol/L (3.5-5.1)
[2024-02-25 08:20] LABS: CALCIUM 7.7 mg/dL (8.5-10.1)
[2024-02-25 08:21] LABS: BLOOD UREA NITROGEN 6.8 mg/dL (7-18); MAGNESIUM 1.8 mg/dL (1.8-2.4)
[2024-02-25 08:24] LABS: CREATININE 0.3 mg/dL (0.55-1.3)
[2024-02-26] MEDS: FUROSEMIDE 40 MG/4 ML INJECTABLE VIAL IVPUSH SCH (12:24)
[2024-02-26] MEDS: AMINO ACIDS 4.25%/D5W 1,000 ML IV SCH (12:24)
[2024-02-26 18:40] VITALS: BP 148/76; PULSE 66; RESP 20; TEMP 97.1
== END 2024-02-26 19:34 | DRG 57 ==
LOC: JER 23:09 → JERBED 02-24 06:02 → J4S 02-24 15:54
PROVIDERS: ADMIT Internal Medicine; ATTEND Family Medicine
DX: I69.292 Facial weakness following other nontraumatic intracranial hemorrhage (principal); I50.22 Chronic systolic (congestive) heart failure; J96.11 Chronic respiratory failure with hypoxia; I69.251 Hemiplegia and hemiparesis following other nontraumatic intracranial hemorrhage affecting right dominant side; J44.9 Chronic obstructive pulmonary disease, unspecified; E11.9 Type 2 diabetes mellitus without complications; G40.909 Epilepsy, unspecified, not intractable, without status epilepticus; E78.5 Hyperlipidemia, unspecified; G30.9 Alzheimer's disease, unspecified; N40.0 Benign prostatic hyperplasia without lower urinary tract symptoms; R91.1 Solitary pulmonary nodule; G40.901 Epilepsy, unspecified, not intractable, with status epilepticus; Z99.81 Dependence on supplemental oxygen; F02.80 Dementia in other diseases classified elsewhere, unspecified severity, without behavioral disturbance, psychotic disturbance, mood disturbance, and anxiety; R13.10 Dysphagia, unspecified; I11.0 Hypertensive heart disease with heart failure; Z87.891 Personal history of nicotine dependence
CPT/HCPCS: 0241U-QW; 36415; 70450-TC; 70551-TC; 71045-TC-FY; 80048; 80053; 82962; 83605; 83735; 84484; 85025; 85610; 85730; 86850; 86900; 86901; 93005; 93010; 93306-TC; 93880-TC; 97161-GP; 99285-25

== ENCOUNTER 2024-03-13 20:13 | Inpatient (IN) | payer OTHER ==
[2024-03-13] MEDS ORDERED: levETIRAcetam 500 MG/5 ML INJECTION VIAL IVPB ONE (21:47)
[2024-03-13 21:55] LABS: BASO % 0.5 % (0-2.0); EOS % 1.9 % (0-4.5); HEMATOCRIT 31.5 % (35.4-49); HEMOGLOBIN 9.9 GM/dL (11.7-16.9); LYMPH % 13.1 % (8-40); MCH 27.6 pg (25.7-33.7); MCHC 31.6 g/dl (32.0-35.9); MEAN CELL VOLUME 87.4 fl (80-96); MEAN PLT VOLUME 7.9 fl (7.5-11.1); NEUT % 78.5 % (42.8-82.8); PLATELET COUNT 369 10^3/uL (134-434); RBC 3.61 M/mm3 (4.00-5.60); RDW 23.1 % (11.9-15.9); WHITE BLOOD COUNT 8.9 K/mm3 (4.0-10.0)
[2024-03-13] MEDS: levETIRAcetam 500 MG/5 ML INJECTION VIAL IVPB ONE (21:55)
[2024-03-13 21:57] LABS: INR 1.15 (0.83-1.09); PROTHROMBIN TIME (PATIENT) 12.9 SEC (9.7-13.0)
[2024-03-13 22:00] LABS: ACTIVATED PTT 28.4 SECONDS (25.2-36.5)
[2024-03-13 22:14] LABS: POTASSIUM 3.7 mmol/L (3.5-5.1)
[2024-03-13 22:16] LABS: VENOUS BASE EXCESS 13.8 mmol/L (-2-2); VENOUS O2 SATURATION 68.9 % (70-80); VENOUS PH 7.357 (7.310-7.410)
[2024-03-13 22:16] LABS: ALBUMIN 1.7 g/dl (3.4-5.0); CALCIUM 8.2 mg/dL (8.5-10.1)
[2024-03-13 22:17] LABS: BLOOD UREA NITROGEN 16.4 mg/dL (7-18)
[2024-03-13 22:20] LABS: CREATININE 0.4 mg/dL (0.55-1.3)
[2024-03-13 22:21] LABS: BILIRUBIN,TOTAL 0.3 mg/dL (0.2-1)
[2024-03-13] MEDS ORDERED: CEFTRIAXONE 1 GM/50 ML BAG ONE (23:02)
[2024-03-13 23:03] LABS: VENOUS PCO2 78.6 mmHg (38-52)
[2024-03-13] MEDS ORDERED: DOXYCYCLINE HYCLATE 100 MG VIAL ONE (23:10)
[2024-03-13] MEDS: DOXYCYCLINE INJECTION 100 MG in DEXTROSE 5%-WATER 100 ML IVPB ONE (23:19)
[2024-03-14] MEDS ORDERED: ALBUTEROL SO4 2.5/IPRATROPIUM 0.5 INH SOL 3 ML VIAL.NEB. NEB PRN (06:20)
[2024-03-14] MEDS ORDERED: SODIUM PHOSPHATE/NA BIPHOS 133 ML ENEMA RC PRN (06:20)
[2024-03-14 06:34] LABS: BASO % 0.7 % (0-2.0); EOS % 1.6 % (0-4.5); HEMATOCRIT 28.9 % (35.4-49); HEMOGLOBIN 9.1 GM/dL (11.7-16.9); MCH 27.7 pg (25.7-33.7); MCHC 31.4 g/dl (32.0-35.9); MEAN CELL VOLUME 88.2 fl (80-96); MEAN PLT VOLUME 8.1 fl (7.5-11.1); MONO % 5.9 % (3.8-10.2); NEUT % 79.8 % (42.8-82.8); PLATELET COUNT 344 10^3/uL (134-434); RBC 3.28 M/mm3 (4.00-5.60); RDW 22.7 % (11.9-15.9); WHITE BLOOD COUNT 8.4 K/mm3 (4.0-10.0)
[2024-03-14 06:53] LABS: POTASSIUM 3.9 mmol/L (3.5-5.1)
[2024-03-14 06:57] LABS: ALBUMIN 1.6 g/dl (3.4-5.0); BLOOD UREA NITROGEN 17.7 mg/dL (7-18)
[2024-03-14 07:00] LABS: CREATININE 0.4 mg/dL (0.55-1.3); PHOSPHOROUS 3.5 mg/dL (2.5-4.9)
[2024-03-14 07:01] LABS: BILIRUBIN,TOTAL 0.3 mg/dL (0.2-1); TOT PROT 6.6 g/dl (6.4-8.2)
[2024-03-14] MEDS: INSULIN ASPART SLIDING SCALE (NOVOLOG) 1 VIAL SQ SCH (09:36)
[2024-03-14] MEDS ORDERED: AZITHROMYCIN IVPB 500 MG/250 ML BAG IVPB ONE (09:43)
[2024-03-14] MEDS ORDERED: PIPERACILLIN/TAZOB 4.5 GM 4.5 GM/100 ML BAG IVPB ONE (09:43)
[2024-03-14] MEDS: LACTATED RINGERS SOLUTION 1,000 ML/1,000 ML INFUS.BAG IV SCH (10:13)
[2024-03-14] MEDS: VALPROATE SODIUM IVPB SCH (10:13)
[2024-03-14] MEDS: SODIUM CHLORIDE IVPB SCH (10:13)
[2024-03-14] MEDS: AZITHROMYCIN IVPB 500 MG/250 ML BAG IVPB SCH (10:14)
[2024-03-14] MEDS: ENOXAPARIN NA (PORCINE) 40 MG/0.4 ML DISP.SYRIN SQ SCH (10:14)
[2024-03-14] MEDS: BUDESONIDE 0.5 MG/2 ML INH SUSP VIAL NEB SCH ×2 (10:25→22:24)
[2024-03-14] MEDS: ONDANSETRON *ODT* 4 MG TABLET SL SCH (10:32)
[2024-03-14] MEDS: PIPERACILLIN/TAZOB 4.5 GM 4.5 GM in DEXTROSE 5%-WATER 100 ML IVPB SCH ×3 (11:24→19:39)
[2024-03-14 11:51] LABS: ARTERIAL BLD GAS O2 SATURATION 90.5 % (95-98); ARTERIAL BLOOD GAS BASE EXCESS 14.3 mmol/L (-2-2); ARTERIAL BLOOD GAS PO2 53.5 mmHg (80-100); ARTERIAL BLOOD GAS pH 7.524 (7.350-7.450)
[2024-03-14 11:53] LABS: ALLENS TEST POSITIVE
[2024-03-14] MEDS: ASPIRIN 81 MG CHEWABLE TABLETS PO SCH (12:37)
[2024-03-14] MEDS: CARVEDILOL 25 MG TABLET (FP) PO SCH (12:37)
[2024-03-14] MEDS: POLYETHYLENE GLYCOL (HEALTHYLAX) 3350 17 GM PACKET GT SCH (12:38)
[2024-03-14] MEDS: FUROSEMIDE 20 MG TABLET (FP) PO SCH (12:39)
[2024-03-14] MEDS: levETIRAcetam 500 MG TABLET (FP) PO SCH ×2 (12:39→21:28)
[2024-03-14] MEDS: TAMSULOSIN HCL 0.4 MG CAP PO SCH (12:43)
[2024-03-14] MEDS: VALPROATE SODIUM 500 MG/5 ML VIAL IVPB SCH (13:59)
[2024-03-14 14:50] LABS: N-TERMINAL BNP 19747.1 pg/ml (5-450)
[2024-03-14] MEDS: FUROSEMIDE 40 MG/4 ML INJECTABLE VIAL IVPUSH ONE (16:12)
[2024-03-14 18:22] VITALS: BMI 21.9
[2024-03-14] MEDS: ATORVASTATIN CA 80 MG TABLET (FP) PO SCH (21:27)
[2024-03-14] MEDS: SENNOSIDES 8.8 MG/5 ML SYRUP PO SCH (21:30)
[2024-03-15 11:10] LABS: BASO % 0.4 % (0-2.0); EOS % 2.2 % (0-4.5); HEMATOCRIT 26.2 % (35.4-49); HEMOGLOBIN 8.3 GM/dL (11.7-16.9); LYMPH % 15.6 % (8-40); MCH 27.5 pg (25.7-33.7); MCHC 31.7 g/dl (32.0-35.9); MEAN CELL VOLUME 86.9 fl (80-96); MEAN PLT VOLUME 8.2 fl (7.5-11.1); MONO % 8.4 % (3.8-10.2); NEUT % 73.4 % (42.8-82.8); PLATELET COUNT 318 10^3/uL (134-434); RBC 3.02 M/mm3 (4.00-5.60); RDW 23.2 % (11.9-15.9)
[2024-03-15 11:33] LABS: CHLORIDE 102 mmol/L (98-107); SODIUM 146 mmol/L (136-145)
[2024-03-15 11:35] LABS: CALCIUM 7.8 mg/dL (8.5-10.1)
[2024-03-15 11:36] LABS: ALBUMIN 1.5 g/dl (3.4-5.0); ANION GAP 3 mmol/L (4-13); BLOOD UREA NITROGEN 23.3 mg/dL (7-18); CO2 41 mmol/L (21-32); GLUCOSE,RANDOM 212 mg/dL (74-106); MAGNESIUM 2.1 mg/dL (1.8-2.4); POTASSIUM 2.9 mmol/L (3.5-5.1)
[2024-03-15 11:39] LABS: CREATININE 0.6 mg/dL (0.55-1.3); SGOT/AST 23 U/L (15-37); SGPT/ALT 15 U/L (13-61)
[2024-03-15 11:41] LABS: BILIRUBIN,TOTAL 0.3 mg/dL (0.2-1); TOT PROT 5.9 g/dl (6.4-8.2)
[2024-03-15 11:42] LABS: ALK PHOS 78 U/L (45-117)
[2024-03-15] MEDS ORDERED: KCL 10 MEQ IVPB 10 MEQ/100 ML INFUS.BAG IVPB SCH (15:30)
[2024-03-15] MEDS: MULTIVIT-MINERALS ORAL LIQUID PEG SCH (17:42)
[2024-03-15] MEDS: POTASSIUM CHLORIDE ORAL LIQUID 20 MEQ/15 ML GT SCH (17:42)
[2024-03-15] MEDS: ASCORBIC ACID 500 MG/5 ML UNIT DOSE CUP PEG SCH (22:29)
[2024-03-15] MEDS: ACETAMINOPHEN 325 MG TABLET (FP) PO PRN (22:32)
[2024-03-16 10:11] LABS: BASO % 0.4 % (0-2.0); EOS % 2.4 % (0-4.5); HEMOGLOBIN 8.1 GM/dL (11.7-16.9); LYMPH % 13.4 % (8-40); MCH 28.2 pg (25.7-33.7); MCHC 32.4 g/dl (32.0-35.9); MEAN CELL VOLUME 87.1 fl (80-96); MEAN PLT VOLUME 8.2 fl (7.5-11.1); MONO % 6.7 % (3.8-10.2); NEUT % 77.1 % (42.8-82.8); PLATELET COUNT 301 10^3/uL (134-434); RBC 2.87 M/mm3 (4.00-5.60); RDW 22.9 % (11.9-15.9); WHITE BLOOD COUNT 5.2 K/mm3 (4.0-10.0)
[2024-03-16 10:32] LABS: POTASSIUM 3.2 mmol/L (3.5-5.1)
[2024-03-16 10:50] LABS: CALCIUM 7.5 mg/dL (8.5-10.1)
[2024-03-16 10:51] LABS: ALBUMIN 1.4 g/dl (3.4-5.0); BLOOD UREA NITROGEN 22.4 mg/dL (7-18); MAGNESIUM 2.2 mg/dL (1.8-2.4)
[2024-03-16 10:53] LABS: CREATININE 0.6 mg/dL (0.55-1.3)
[2024-03-16 10:56] LABS: BILIRUBIN,TOTAL 0.2 mg/dL (0.2-1); TOT PROT 5.7 g/dl (6.4-8.2)
[2024-03-16] MEDS: ZINC SULFATE 220 MG CAPSULE (FP) GT SCH (11:03)
[2024-03-16] MEDS: POTASSIUM CHLORIDE ORAL LIQUID 20 MEQ/15 ML GT SCH (11:07)
[2024-03-17 07:49] LABS: BASO % 0.4 % (0-2.0); EOS % 2.4 % (0-4.5); HEMATOCRIT 23.8 % (35.4-49); HEMOGLOBIN 7.7 GM/dL (11.7-16.9); LYMPH % 14.7 % (8-40); MCH 28.6 pg (25.7-33.7); MCHC 32.3 g/dl (32.0-35.9); MEAN CELL VOLUME 88.6 fl (80-96); MEAN PLT VOLUME 7.9 fl (7.5-11.1); MONO % 5.8 % (3.8-10.2); NEUT % 76.7 % (42.8-82.8); PLATELET COUNT 302 10^3/uL (134-434); RBC 2.69 M/mm3 (4.00-5.60); RDW 22.7 % (11.9-15.9); WHITE BLOOD COUNT 5.4 K/mm3 (4.0-10.0)
[2024-03-17 08:12] LABS: ALBUMIN 1.4 g/dl (3.4-5.0); CALCIUM 7.4 mg/dL (8.5-10.1)
[2024-03-17 08:13] LABS: BLOOD UREA NITROGEN 17.2 mg/dL (7-18); MAGNESIUM 2.1 mg/dL (1.8-2.4)
[2024-03-17 08:16] LABS: CREATININE 0.5 mg/dL (0.55-1.3)
[2024-03-17 08:17] LABS: BILIRUBIN,TOTAL 0.2 mg/dL (0.2-1); TOT PROT 5.6 g/dl (6.4-8.2)
[2024-03-17 09:07] LABS: ANISOCYTOSIS 2+; MACROCYTOSIS 0
[2024-03-17] MEDS: POTASSIUM CHLORIDE ORAL LIQUID 20 MEQ/15 ML PO ONE (14:18)
[2024-03-18 07:30] LABS: BASO % 0.4 % (0-2.0); EOS % 1.8 % (0-4.5); HEMATOCRIT 24.9 % (35.4-49); HEMOGLOBIN 7.8 GM/dL (11.7-16.9); MCH 27.8 pg (25.7-33.7); MCHC 31.4 g/dl (32.0-35.9); MEAN CELL VOLUME 88.6 fl (80-96); MEAN PLT VOLUME 8.4 fl (7.5-11.1); MONO % 6.8 % (3.8-10.2); PLATELET COUNT 306 10^3/uL (134-434); RBC 2.81 M/mm3 (4.00-5.60); RDW 22.8 % (11.9-15.9); WHITE BLOOD COUNT 5.7 K/mm3 (4.0-10.0)
[2024-03-18 07:35] LABS: CHLORIDE 110 mmol/L (98-107); POTASSIUM 4.3 mmol/L (3.5-5.1); SODIUM 148 mmol/L (136-145)
[2024-03-18 07:37] LABS: CALCIUM 7.7 mg/dL (8.5-10.1)
[2024-03-18 07:38] LABS: ALBUMIN 1.4 g/dl (3.4-5.0); ANION GAP 1 mmol/L (4-13); BLOOD UREA NITROGEN 17.1 mg/dL (7-18); CO2 37 mmol/L (21-32); MAGNESIUM 2.2 mg/dL (1.8-2.4)
[2024-03-18 07:41] LABS: CREATININE 0.6 mg/dL (0.55-1.3); SGOT/AST 30 U/L (15-37); SGPT/ALT 24 U/L (13-61)
[2024-03-18 07:42] LABS: GLUCOSE,RANDOM 406 mg/dL (74-106)
[2024-03-18 07:43] LABS: BILIRUBIN,TOTAL 0.6 mg/dL (0.2-1); TOT PROT 6.1 g/dl (6.4-8.2)
[2024-03-18 07:44] LABS: ALK PHOS 118 U/L (45-117)
[2024-03-19] MEDS ORDERED: INSULIN (LEVEMIR) 100 UNITS/ML UNITS SQ SCH (22:00)
[2024-03-19] MEDS: INSULIN (LEVEMIR) 100 UNITS/ML UNITS SQ SCH (23:02)
[2024-03-20 08:18] LABS: HEMATOCRIT 26.3 % (35.4-49); HEMOGLOBIN 8.5 GM/dL (11.7-16.9); MCH 28.2 pg (25.7-33.7); MCHC 32.1 g/dl (32.0-35.9); MEAN CELL VOLUME 87.6 fl (80-96); MEAN PLT VOLUME 8.8 fl (7.5-11.1); PLATELET COUNT 321 10^3/uL (134-434); RDW 22.8 % (11.9-15.9)
[2024-03-20 09:02] LABS: POTASSIUM 4.2 mmol/L (3.5-5.1)
[2024-03-20 09:05] LABS: ALBUMIN 1.4 g/dl (3.4-5.0); BLOOD UREA NITROGEN 17.6 mg/dL (7-18); CALCIUM 8.1 mg/dL (8.5-10.1)
[2024-03-20 09:09] LABS: CREATININE 0.6 mg/dL (0.55-1.3)
[2024-03-20 09:10] LABS: BILIRUBIN,TOTAL 0.5 mg/dL (0.2-1)
[2024-03-20 09:11] LABS: TOT PROT 6.6 g/dl (6.4-8.2)
[2024-03-21] MEDS: INSULIN (LEVEMIR) 100 UNITS/ML UNITS SQ SCH (06:35)
[2024-03-21 06:54] LABS: HEMATOCRIT 27.8 % (35.4-49); HEMOGLOBIN 8.8 GM/dL (11.7-16.9); MCH 27.7 pg (25.7-33.7); MCHC 31.5 g/dl (32.0-35.9); MEAN PLT VOLUME 8.9 fl (7.5-11.1); PLATELET COUNT 318 10^3/uL (134-434); RBC 3.16 M/mm3 (4.00-5.60); RDW 22.4 % (11.9-15.9); WHITE BLOOD COUNT 6.8 K/mm3 (4.0-10.0)
[2024-03-21 07:11] LABS: POTASSIUM 4.5 mmol/L (3.5-5.1)
[2024-03-21 07:18] LABS: ALBUMIN 1.5 g/dl (3.4-5.0)
[2024-03-21 07:19] LABS: CALCIUM 8.2 mg/dL (8.5-10.1)
[2024-03-21 07:20] LABS: BLOOD UREA NITROGEN 17.6 mg/dL (7-18); MAGNESIUM 2.1 mg/dL (1.8-2.4)
[2024-03-21 07:22] LABS: BILIRUBIN,TOTAL 0.5 mg/dL (0.2-1)
[2024-03-21 07:23] LABS: CREATININE 0.6 mg/dL (0.55-1.3); PHOSPHOROUS 3.2 mg/dL (2.5-4.9); TOT PROT 7.1 g/dl (6.4-8.2)
[2024-03-21] MEDS: COLLAGENASE CLOSTRIDIUM HIST. 30 GRAMS TUBE TP SCH (10:07)
[2024-03-21] MEDS: VALPROATE SODIUM 250 MG/5 ML UNIT DOSE CUP GT SCH (21:25)
[2024-03-22 08:29] LABS: HEMATOCRIT 28.2 % (35.4-49); HEMOGLOBIN 8.9 GM/dL (11.7-16.9); MCH 27.7 pg (25.7-33.7); MCHC 31.7 g/dl (32.0-35.9); MEAN CELL VOLUME 87.4 fl (80-96); MEAN PLT VOLUME 8.7 fl (7.5-11.1); PLATELET COUNT 299 10^3/uL (134-434); RBC 3.23 M/mm3 (4.00-5.60); WHITE BLOOD COUNT 6.1 K/mm3 (4.0-10.0)
[2024-03-22 08:39] LABS: POTASSIUM 4.6 mmol/L (3.5-5.1)
[2024-03-22 08:43] LABS: ALBUMIN 1.5 g/dl (3.4-5.0); BLOOD UREA NITROGEN 19.9 mg/dL (7-18); CALCIUM 8.4 mg/dL (8.5-10.1); MAGNESIUM 2.2 mg/dL (1.8-2.4)
[2024-03-22 08:46] LABS: CREATININE 0.6 mg/dL (0.55-1.3)
[2024-03-22 08:48] LABS: BILIRUBIN,TOTAL 0.4 mg/dL (0.2-1)
[2024-03-23 06:50] LABS: BASO % 0.5 % (0-2.0); HEMATOCRIT 25.6 % (35.4-49); HEMOGLOBIN 8.1 GM/dL (11.7-16.9); LYMPH % 25.5 % (8-40); MCH 27.7 pg (25.7-33.7); MCHC 31.7 g/dl (32.0-35.9); MEAN CELL VOLUME 87.4 fl (80-96); MEAN PLT VOLUME 8.6 fl (7.5-11.1); PLATELET COUNT 277 10^3/uL (134-434); RBC 2.93 M/mm3 (4.00-5.60); RDW 21.7 % (11.9-15.9); WHITE BLOOD COUNT 5.7 K/mm3 (4.0-10.0)
[2024-03-23 07:12] LABS: POTASSIUM 4.6 mmol/L (3.5-5.1)
[2024-03-23 07:14] LABS: ALBUMIN 1.4 g/dl (3.4-5.0); CALCIUM 8.3 mg/dL (8.5-10.1)
[2024-03-23 07:15] LABS: MAGNESIUM 2.1 mg/dL (1.8-2.4)
[2024-03-23 07:18] LABS: CREATININE 0.5 mg/dL (0.55-1.3); PHOSPHOROUS 3.1 mg/dL (2.5-4.9)
[2024-03-23 07:19] LABS: BILIRUBIN,TOTAL 0.2 mg/dL (0.2-1); TOT PROT 6.5 g/dl (6.4-8.2)
[2024-03-23 08:45] LABS: ANISOCYTOSIS 1+; MACROCYTOSIS 0
[2024-03-24 00:24] VITALS: BP 123/78; PULSE 82; RESP 16; TEMP 98.6
== END 2024-03-23 22:00 | DRG 100 ==
LOC: JER 20:13 → JERBED 03-14 01:02 → OBSVTOIN 03-14 09:23 → J4S 03-14 14:37
PROVIDERS: ADMIT Internal Medicine; ATTEND Internal Medicine
DX: G40.909 Epilepsy, unspecified, not intractable, without status epilepticus (principal); I50.23 Acute on chronic systolic (congestive) heart failure; L89.153 Pressure ulcer of sacral region, stage 3; J69.0 Pneumonitis due to inhalation of food and vomit; J96.01 Acute respiratory failure with hypoxia; R53.2 Functional quadriplegia; L89.312 Pressure ulcer of right buttock, stage 2; I11.0 Hypertensive heart disease with heart failure; G30.9 Alzheimer's disease, unspecified; F02.80 Dementia in other diseases classified elsewhere, unspecified severity, without behavioral disturbance, psychotic disturbance, mood disturbance, and anxiety; N40.0 Benign prostatic hyperplasia without lower urinary tract symptoms; J44.9 Chronic obstructive pulmonary disease, unspecified; E11.65 Type 2 diabetes mellitus with hyperglycemia; H26.8 Other specified cataract; R13.10 Dysphagia, unspecified; L89.892 Pressure ulcer of other site, stage 2; Z85.46 Personal history of malignant neoplasm of prostate
CPT/HCPCS: 0241U-QW; 36415; 36600; 70450-TC; 71045-TC-FY; 76705-TC; 80053; 80061; 80164; 80177; 82010; 82550; 82553; 82803; 82962; 83036; 83735; 83880; 84100; 84484; 85025; 85027; 85610; 85730; 87324; 87449; 93005; 93010; 94640; 99285-25; G0378; J0131; Q0162

== ENCOUNTER 2024-04-02 13:03 | Inpatient (IN) | payer OTHER ==
[2024-04-02 13:31] LABS: BASO % 0.6 % (0-2.0); EOS % 0.5 % (0-4.5); HEMATOCRIT 29.1 % (35.4-49); HEMOGLOBIN 9.3 GM/dL (11.7-16.9); LYMPH % 17.7 % (8-40); MCHC 31.9 g/dl (32.0-35.9); MEAN CELL VOLUME 84.8 fl (80-96); MEAN PLT VOLUME 8.1 fl (7.5-11.1); MONO % 5.9 % (3.8-10.2); NEUT % 75.3 % (42.8-82.8); PLATELET COUNT 328 10^3/uL (134-434); RBC 3.43 M/mm3 (4.00-5.60); RDW 20.1 % (11.9-15.9); WHITE BLOOD COUNT 9.4 K/mm3 (4.0-10.0)
[2024-04-02] MEDS: ALBUTEROL SO4 2.5/IPRATROPIUM 0.5 INH SOL 3 ML VIAL.NEB. NEB ONE (13:32)
[2024-04-02] MEDS ORDERED: ACETAMINOPHEN INJECTION 100 ML ONE (13:33)
[2024-04-02] MEDS ORDERED: ALBUTEROL SO4 2.5/IPRATROPIUM 0.5 INH SOL 3 ML VIAL.NEB. NEB ONE ×3 (13:33→20:07)
[2024-04-02] MEDS: ACETAMINOPHEN 1000 MG/100 ML BAG IVPB ONE (13:33)
[2024-04-02 13:37] LABS: INR 1.34 (0.83-1.09); PROTHROMBIN TIME (PATIENT) 15.3 SEC (9.7-13.0)
[2024-04-02 13:40] LABS: ACTIVATED PTT 29.4 SECONDS (25.2-36.5)
[2024-04-02 13:50] LABS: POTASSIUM 4.3 mmol/L (3.5-5.1)
[2024-04-02 13:53] VITALS: BMI 20.7
[2024-04-02 13:53] LABS: BLOOD UREA NITROGEN 29.9 mg/dL (7-18)
[2024-04-02 13:56] LABS: CREATININE 0.6 mg/dL (0.55-1.3)
[2024-04-02 13:58] LABS: BILIRUBIN,TOTAL 0.4 mg/dL (0.2-1); TOT PROT 7.7 g/dl (6.4-8.2)
[2024-04-02 14:01] LABS: N-TERMINAL BNP 4157.5 pg/ml (5-450)
[2024-04-02 14:07] LABS: ALBUMIN 1.7 g/dl (3.4-5.0)
[2024-04-02 14:13] LABS: VENOUS BASE EXCESS 5.7 mmol/L (-2-2); VENOUS O2 SATURATION 97.7 % (70-80); VENOUS PCO2 42.2 mmHg (38-52)
[2024-04-02] MEDS ORDERED: PIPERACILLIN/TAZOB 3.375 GM 3.375 GM/50 ML BAG IVPB ONE (14:24)
[2024-04-02] MEDS ORDERED: VANCOMYCIN 1 GRAM (PRE-DOCKED) 1,000 MG/250 ML BAG IVPB ONE (14:24)
[2024-04-02] MEDS ORDERED: FUROSEMIDE 40 MG/4 ML INJECTABLE VIAL ONE (14:24)
[2024-04-02] MEDS: PIPERACILLIN/TAZOB 3.375 GM 3.375 GM in DEXTROSE 5%-WATER - 50 ML IVPB ONE (14:25)
[2024-04-02] MEDS: FUROSEMIDE 40 MG/4 ML INJECTABLE VIAL IVPUSH ONE (14:25)
[2024-04-02 14:27] LABS: EPI CELLS 2 /uL (0-25.1); HYALINE CASTS 0 /uL (0-3.1); PH,URINE 5.5 (5.0-8.0); URINE APPEARANCE TURBID; URINE BACTERIA 101 /uL (0-1359); URINE BILIRUBIN NEGATIVE (NEGATIVE); URINE COLOR YELLOW; URINE GLUCOSE (UA) NEGATIVE (NEGATIVE); URINE KETONE NEGATIVE (NEGATIVE); URINE LEUK ESTERASE 3+ (NEGATIVE); URINE NITRITE NEGATIVE (NEGATIVE); URINE PROTEIN 1+ (NEGATIVE); URINE WBC 3315 /uL (0-25.8)
[2024-04-02 14:50] LABS: URINE RBC 410 /uL (0-23.9); YEAST PRESENT (NEGATIVE)
[2024-04-02] MEDS: VANCOMYCIN 1,000 MG in DEXTROSE 5%-WATER - 250 ML IVPB ONE (15:05)
[2024-04-02] MEDS: INSULIN ASPART SLIDING SCALE (NOVOLOG) 1 VIAL SQ SCH (15:53)
[2024-04-02] MEDS ORDERED: INSULIN ASPART SLIDING SCALE (NOVOLOG) 1 VIAL SQ ONE ×2 (15:56→21:53)
[2024-04-02] MEDS: ALBUTEROL SO4 2.5/IPRATROPIUM 0.5 INH SOL 3 ML VIAL.NEB. NEB SCH (16:26)
[2024-04-02] MEDS: levETIRAcetam 500 MG/5 ML ORAL SOLUTION (UNIT-DOSE CUPS) PEG SCH (17:19)
[2024-04-02] MEDS: VALPROATE SODIUM 250 MG/5 ML UNIT DOSE CUP NGT SCH (17:57)
[2024-04-02] MEDS: PIPERACILLIN/TAZOB 4.5 GM 4.5 GM in DEXTROSE 5%-WATER 100 ML IVPB SCH (21:16)
[2024-04-02] MEDS ORDERED: PIPERACILLIN/TAZOB 4.5 GM 4.5 GM/100 ML BAG IVPB ONE (21:17)
[2024-04-02] MEDS ORDERED: SENNOSIDES 8.6MG TABLET (FP) PO ONE (22:24)
[2024-04-02] MEDS ORDERED: CARVEDILOL 25 MG TABLET (FP) ONE (22:24)
[2024-04-02] MEDS ORDERED: HEPARIN NA (PORCINE) 5,000 UNITS/ML 1ML VIAL ONE (22:25)
[2024-04-02] MEDS: CARVEDILOL 25 MG TABLET (FP) PEG SCH (22:31)
[2024-04-02] MEDS: HEPARIN NA (PORCINE) 5,000 UNITS/ML 1ML VIAL SQ SCH (22:31)
[2024-04-02] MEDS: SENNOSIDES 8.8 MG/5 ML SYRUP PO SCH (22:32)
[2024-04-03] MEDS ORDERED: ALBUTEROL SO4 2.5/IPRATROPIUM 0.5 INH SOL 3 ML VIAL.NEB. NEB ONE ×6 (00:34→21:28)
[2024-04-03] MEDS ORDERED: PIPERACILLIN/TAZOB 4.5 GM 4.5 GM/100 ML BAG IVPB ONE ×3 (02:43→16:50)
[2024-04-03] MEDS ORDERED: INSULIN ASPART SLIDING SCALE (NOVOLOG) 1 VIAL SQ ONE ×3 (03:48→15:48)
[2024-04-03 07:12] LABS: BASO % 0.1 % (0-2.0); HEMATOCRIT 26.9 % (35.4-49); HEMOGLOBIN 8.6 GM/dL (11.7-16.9); LYMPH % 14.6 % (8-40); MCH 27.5 pg (25.7-33.7); MCHC 32.1 g/dl (32.0-35.9); MEAN CELL VOLUME 85.7 fl (80-96); MEAN PLT VOLUME 8.4 fl (7.5-11.1); NEUT % 80.3 % (42.8-82.8); PLATELET COUNT 301 10^3/uL (134-434); RBC 3.14 M/mm3 (4.00-5.60); RDW 19.9 % (11.9-15.9); WHITE BLOOD COUNT 9.1 K/mm3 (4.0-10.0)
[2024-04-03 07:14] LABS: POTASSIUM 3.1 mmol/L (3.5-5.1)
[2024-04-03 07:17] LABS: CALCIUM 8.1 mg/dL (8.5-10.1)
[2024-04-03 07:18] LABS: BLOOD UREA NITROGEN 34.2 mg/dL (7-18)
[2024-04-03 07:21] LABS: CREATININE 0.7 mg/dL (0.55-1.3)
[2024-04-03] MEDS ORDERED: POTASSIUM CHLORIDE ORAL LIQUID 20 MEQ/15 ML PEG SCH (10:00)
[2024-04-03] MEDS ORDERED: POTASSIUM CHLORIDE ORAL LIQUID 20 MEQ/15 ML ONE (10:12)
[2024-04-03] MEDS: ASPIRIN 81 MG CHEWABLE TABLETS PO SCH (10:34)
[2024-04-03] MEDS: POTASSIUM CHLORIDE ORAL LIQUID 20 MEQ/15 ML PO SCH (10:35)
[2024-04-03] MEDS: methylPREDNISolone NA SUCC 40 MG/1 ML VIAL IVPUSH SCH (15:02)
[2024-04-03] MEDS ORDERED: methylPREDNISolone NA SUCC 40 MG/1 ML VIAL ONE (15:03)
[2024-04-03] MEDS: AMINO ACIDS/PROTEIN HYDROLYS 30 ML LIQUID.PKT GT SCH (17:21)
[2024-04-03] MEDS: VALPROATE SODIUM 250 MG/5 ML UNIT DOSE CUP GT SCH (17:22)
[2024-04-03] MEDS: PIPERACILLIN/TAZOB 4.5 GM 4.5 GM in DEXTROSE 5%-WATER 100 ML IVPB SCH (17:22)
[2024-04-03] MEDS: POTASSIUM CHLORIDE ORAL LIQUID 20 MEQ/15 ML GT SCH ×2 (18:10→22:52)
[2024-04-03] MEDS: SENNOSIDES 8.8 MG/5 ML SYRUP GT SCH (22:53)
[2024-04-04 09:56] LABS: BASO % 0.2 % (0-2.0); HEMATOCRIT 30.1 % (35.4-49); HEMOGLOBIN 9.2 GM/dL (11.7-16.9); LYMPH % 19.6 % (8-40); MCH 26.4 pg (25.7-33.7); MCHC 30.8 g/dl (32.0-35.9); MEAN CELL VOLUME 85.7 fl (80-96); MEAN PLT VOLUME 8.4 fl (7.5-11.1); MONO % 6.7 % (3.8-10.2); NEUT % 73.5 % (42.8-82.8); PLATELET COUNT 300 10^3/uL (134-434); RBC 3.51 M/mm3 (4.00-5.60); RDW 20.1 % (11.9-15.9); WHITE BLOOD COUNT 8.9 K/mm3 (4.0-10.0)
[2024-04-04] MEDS: DOXAZOSIN MESYLATE 2 MG TABLET GT SCH (10:13)
[2024-04-04] MEDS: ASPIRIN 81 MG CHEWABLE TABLETS GT SCH (10:14)
[2024-04-04 10:28] LABS: POTASSIUM 3.4 mmol/L (3.5-5.1)
[2024-04-04 10:35] LABS: CALCIUM 8.5 mg/dL (8.5-10.1)
[2024-04-04 10:36] LABS: ALBUMIN 1.6 g/dl (3.4-5.0); BLOOD UREA NITROGEN 54.8 mg/dL (7-18); MAGNESIUM 2.2 mg/dL (1.8-2.4)
[2024-04-04 10:39] LABS: CREATININE 0.8 mg/dL (0.55-1.3)
[2024-04-04 10:40] LABS: BILIRUBIN,TOTAL 0.4 mg/dL (0.2-1)
[2024-04-04] MEDS: POTASSIUM CHLORIDE ORAL LIQUID 20 MEQ/15 ML GT ONE (11:50)
[2024-04-04] MEDS: ATORVASTATIN CA 80 MG TABLET (FP) PEG SCH (21:34)
[2024-04-04] MEDS: ASCORBIC ACID 500 MG/5 ML UNIT DOSE CUP GT SCH (21:37)
[2024-04-04] MEDS: INSULIN (LEVEMIR) 100 UNITS/ML UNITS SQ SCH (21:40)
[2024-04-04 23:18] VITALS: RESP 18
[2024-04-05 07:59] LABS: BASO % 0.1 % (0-2.0); EOS % 0.2 % (0-4.5); HEMATOCRIT 29.1 % (35.4-49); HEMOGLOBIN 9.1 GM/dL (11.7-16.9); LYMPH % 14.5 % (8-40); MCH 26.9 pg (25.7-33.7); MCHC 31.1 g/dl (32.0-35.9); MEAN CELL VOLUME 86.4 fl (80-96); MEAN PLT VOLUME 8.1 fl (7.5-11.1); MONO % 5.8 % (3.8-10.2); NEUT % 79.4 % (42.8-82.8); PLATELET COUNT 286 10^3/uL (134-434); RBC 3.37 M/mm3 (4.00-5.60); WHITE BLOOD COUNT 8.8 K/mm3 (4.0-10.0)
[2024-04-05 08:18] LABS: ALBUMIN 1.5 g/dl (3.4-5.0); BLOOD UREA NITROGEN 58.1 mg/dL (7-18); CALCIUM 8.1 mg/dL (8.5-10.1); MAGNESIUM 2.3 mg/dL (1.8-2.4); POTASSIUM 3.5 mmol/L (3.5-5.1)
[2024-04-05 08:22] LABS: CREATININE 0.7 mg/dL (0.55-1.3); PHOSPHOROUS 3.1 mg/dL (2.5-4.9)
[2024-04-05 08:23] LABS: BILIRUBIN,TOTAL 0.2 mg/dL (0.2-1); TOT PROT 6.6 g/dl (6.4-8.2)
[2024-04-05] MEDS: POTASSIUM CHLORIDE ORAL LIQUID 20 MEQ/15 ML GT ONE (11:42)
[2024-04-05] MEDS: ACETAMINOPHEN 500 MG TABLET (FP) GT PRN (11:43)
[2024-04-05] MEDS: predniSONE 20 MG TABLET (UD) GT SCH (11:44)
[2024-04-05] MEDS: MULTIVIT-MINERALS ORAL LIQUID GT SCH (11:46)
[2024-04-05] MEDS ORDERED: ACETAMINOPHEN 500 MG TABLET (FP) GT PRN (18:04)
[2024-04-05] MEDS: PIPERACILLIN/TAZOB 4.5 GM 4.5 GM in DEXTROSE 5%-WATER 100 ML IVPB SCH (19:38)
[2024-04-05] MEDS: ALBUTEROL SO4 2.5/IPRATROPIUM 0.5 INH SOL 3 ML VIAL.NEB. NEB SCH (20:25)
[2024-04-05] MEDS: levETIRAcetam 500 MG/5 ML ORAL SOLUTION (UNIT-DOSE CUPS) PEG SCH (21:39)
[2024-04-05] MEDS: AMINO ACIDS/PROTEIN HYDROLYS 30 ML LIQUID.PKT GT SCH (21:39)
[2024-04-05] MEDS: ASCORBIC ACID 500 MG/5 ML UNIT DOSE CUP GT SCH (21:39)
[2024-04-05] MEDS: CARVEDILOL 25 MG TABLET (FP) PEG SCH (21:39)
[2024-04-05] MEDS: ATORVASTATIN CA 80 MG TABLET (FP) PEG SCH (21:39)
[2024-04-05] MEDS: SENNOSIDES 8.8 MG/5 ML SYRUP GT SCH (21:43)
[2024-04-05] MEDS: HEPARIN NA (PORCINE) 5,000 UNITS/ML 1ML VIAL SQ SCH (21:46)
[2024-04-05] MEDS: INSULIN (LEVEMIR) 100 UNITS/ML UNITS SQ SCH (21:59)
[2024-04-05] MEDS: INSULIN ASPART SLIDING SCALE (NOVOLOG) 1 VIAL SQ SCH (21:59)
[2024-04-05] MEDS: VALPROATE SODIUM 250 MG/5 ML UNIT DOSE CUP GT SCH (23:03)
[2024-04-05] MEDS: SILODOSIN 4 MG PEG SCH (23:05)
[2024-04-06] MEDS: ASPIRIN 81 MG CHEWABLE TABLETS GT SCH (09:18)
[2024-04-06] MEDS: MULTIVIT-MINERALS ORAL LIQUID GT SCH (09:18)
[2024-04-06] MEDS: DOXAZOSIN MESYLATE 2 MG TABLET GT SCH (09:19)
[2024-04-06 09:28] VITALS: PULSE 97
[2024-04-06 09:41] LABS: EOS % 0.2 % (0-4.5); HEMATOCRIT 28.7 % (35.4-49); HEMOGLOBIN 9.1 GM/dL (11.7-16.9); LYMPH % 13.1 % (8-40); MCHC 31.7 g/dl (32.0-35.9); MEAN CELL VOLUME 85.2 fl (80-96); MEAN PLT VOLUME 8.1 fl (7.5-11.1); MONO % 5.4 % (3.8-10.2); NEUT % 81.3 % (42.8-82.8); PLATELET COUNT 297 10^3/uL (134-434); RBC 3.37 M/mm3 (4.00-5.60); RDW 20.2 % (11.9-15.9); WHITE BLOOD COUNT 10.2 K/mm3 (4.0-10.0)
[2024-04-06 10:09] LABS: POTASSIUM 3.5 mmol/L (3.5-5.1)
[2024-04-06 10:11] LABS: CALCIUM 8.4 mg/dL (8.5-10.1)
[2024-04-06 10:12] LABS: ALBUMIN 1.6 g/dl (3.4-5.0); BLOOD UREA NITROGEN 49.1 mg/dL (7-18); MAGNESIUM 2.5 mg/dL (1.8-2.4)
[2024-04-06 10:15] LABS: CREATININE 0.7 mg/dL (0.55-1.3)
[2024-04-06 10:16] LABS: BILIRUBIN,TOTAL 0.3 mg/dL (0.2-1); TOT PROT 6.6 g/dl (6.4-8.2)
[2024-04-06 11:08] VITALS: BP 115/74; TEMP 98.4
== END 2024-04-06 11:40 | DRG 871 ==
LOC: JER 13:03 → JERBED 14:41 → J4S 04-03 21:36 → J8W 04-05 18:00
PROVIDERS: ADMIT Internal Medicine
DX: A41.9 Sepsis, unspecified organism (principal); E43 Unspecified severe protein-calorie malnutrition; R53.2 Functional quadriplegia; J96.01 Acute respiratory failure with hypoxia; J18.9 Pneumonia, unspecified organism; J44.1 Chronic obstructive pulmonary disease with (acute) exacerbation; I50.20 Unspecified systolic (congestive) heart failure; Z68.1 Body mass index [BMI] 19.9 or less, adult; F02.80 Dementia in other diseases classified elsewhere, unspecified severity, without behavioral disturbance, psychotic disturbance, mood disturbance, and anxiety; G30.9 Alzheimer's disease, unspecified; E11.9 Type 2 diabetes mellitus without complications; I11.0 Hypertensive heart disease with heart failure; E78.5 Hyperlipidemia, unspecified; L89.150 Pressure ulcer of sacral region, unstageable
CPT/HCPCS: 0241U-QW; 36415; 70450-TC; 71045-TC-FY; 71275-TC; 80048; 80053; 81003; 82803; 82962; 83605; 83735; 83880; 84100; 84484; 85025; 85610; 85730; 86850; 86900; 86901; 87040; 87081; 87086; 87635; 93005; 93010; 94640; 95816; 99285-25; J0131; J1644; Q9967

== ENCOUNTER 2024-04-26 08:36 | Inpatient (IN) | payer OTHER ==
[2024-04-26] MEDS ORDERED: ACETAMINOPHEN INJECTION 100 ML ONE ×2 (09:47→21:09)
[2024-04-26] MEDS: ACETAMINOPHEN 1000 MG/100 ML BAG IVPB ONE (10:00)
[2024-04-26 10:08] LABS: BASO % 0.2 % (0-2.0); EOS % 0.1 % (0-4.5); HEMATOCRIT 36.7 % (35.4-49); HEMOGLOBIN 11.1 GM/dL (11.7-16.9); LYMPH % 11.4 % (8-40); MCH 25.8 pg (25.7-33.7); MCHC 30.3 g/dl (32.0-35.9); MEAN CELL VOLUME 85.2 fl (80-96); MEAN PLT VOLUME 9.1 fl (7.5-11.1); MONO % 3.7 % (3.8-10.2); NEUT % 84.6 % (42.8-82.8); PLATELET COUNT 256 10^3/uL (134-434); RBC 4.31 M/mm3 (4.00-5.60); RDW 20.7 % (11.9-15.9); WHITE BLOOD COUNT 5.5 K/mm3 (4.0-10.0)
[2024-04-26 10:16] LABS: INR 1.1 (0.83-1.09); PROTHROMBIN TIME (PATIENT) 12.6 SEC (9.7-13.0)
[2024-04-26 10:21] LABS: VENOUS BASE EXCESS 11.4 mmol/L (-2-2); VENOUS O2 SATURATION 57.7 % (70-80); VENOUS PH 7.311 (7.310-7.410)
[2024-04-26 10:25] LABS: POTASSIUM 4.7 mmol/L (3.5-5.1)
[2024-04-26 10:27] LABS: ALBUMIN 1.5 g/dl (3.4-5.0); BLOOD UREA NITROGEN 53.2 mg/dL (7-18); CALCIUM 8.9 mg/dL (8.5-10.1)
[2024-04-26] MEDS: SODIUM CHLORIDE 0.9% 500 ML INFUS.BAG IV ONE (10:29)
[2024-04-26 10:30] LABS: CREATININE 0.8 mg/dL (0.55-1.3)
[2024-04-26 10:32] LABS: BILIRUBIN,TOTAL 0.3 mg/dL (0.2-1)
[2024-04-26 10:36] LABS: VENOUS PCO2 82.8 mmHg (38-52)
[2024-04-26 10:48] LABS: ACTIVATED PTT 29.5 SECONDS (25.2-36.5)
[2024-04-26 10:49] LABS: LACTIC ACID 3.1 mmol/L (0.4-2.0)
[2024-04-26 11:01] LABS: ANISOCYTOSIS 0; MACROCYTOSIS 0
[2024-04-26] MEDS ORDERED: ALBUTEROL SO4 2.5/IPRATROPIUM 0.5 INH SOL 3 ML VIAL.NEB. NEB ONE ×3 (11:38→21:09)
[2024-04-26] MEDS: ALBUTEROL SO4 2.5/IPRATROPIUM 0.5 INH SOL 3 ML VIAL.NEB. NEB SCH ×2 (11:46→21:10)
[2024-04-26] MEDS ORDERED: PIPERACILLIN/TAZOB 3.375 GM 3.375 GM/50 ML BAG IVPB ONE (12:42)
[2024-04-26] MEDS: PIPERACILLIN/TAZOB 3.375 GM 3.375 GM in DEXTROSE 5%-WATER - 50 ML IVPB ONE (12:48)
[2024-04-26] MEDS ORDERED: VANCOMYCIN 1 GRAM (PRE-DOCKED) 1,000 MG/250 ML BAG IVPB ONE (13:00)
[2024-04-26] MEDS: VANCOMYCIN 1,000 MG in DEXTROSE 5%-WATER - 250 ML IVPB ONE (13:09)
[2024-04-26] MEDS: LACTATED RINGERS SOLUTION 1,000 ML/1,000 ML INFUS.BAG IV SCH (15:41)
[2024-04-26 17:24] LABS: LACTIC ACID 2.3 mmol/L (0.4-2.0)
[2024-04-26 17:26] LABS: ALLENS TEST POSITIVE; ARTERIAL BLD GAS O2 SATURATION 97.3 % (95-98); ARTERIAL BLOOD GAS BASE EXCESS 13.7 mmol/L (-2-2); ARTERIAL BLOOD GAS PO2 87.1 mmHg (80-100); ARTERIAL BLOOD GAS pH 7.522 (7.350-7.450)
[2024-04-26] MEDS: INSULIN ASPART SLIDING SCALE (NOVOLOG) 1 VIAL SQ SCH (17:47)
[2024-04-26] MEDS: LACTATED RINGERS SOLUTION 1000 ML INFUS.BAG IV STA (17:48)
[2024-04-26] MEDS: ACETAMINOPHEN 1000 MG/100 ML BAG IVPB PRN (21:05)
[2024-04-26] MEDS ORDERED: levETIRAcetam 500 MG/5 ML INJECTION VIAL IVPB ONE (21:09)
[2024-04-26] MEDS ORDERED: VALPROATE SODIUM 250 MG/5 ML UNIT DOSE CUP PO SCH (21:15)
[2024-04-26] MEDS: levETIRAcetam 500 MG/5 ML INJECTION VIAL IVPB SCH (21:21)
[2024-04-26] MEDS: VALPROATE SODIUM 250 MG/5 ML UNIT DOSE CUP GT SCH (22:05)
[2024-04-27] MEDS: SODIUM CHLORIDE 500 ML IV STA ×2 (00:18→02:00)
[2024-04-27 00:53] LABS: ARTERIAL BLD GAS O2 SATURATION 87.3 % (95-98); ARTERIAL BLOOD GAS BASE EXCESS 12.5 mmol/L (-2-2); ARTERIAL BLOOD GAS PO2 49.6 mmHg (80-100); ARTERIAL BLOOD GAS pH 7.488 (7.350-7.450)
[2024-04-27 01:01] LABS: ALLENS TEST POSITIVE
[2024-04-27] MEDS ORDERED: PIPERACILLIN/TAZOB 3.375 GM 3.375 GM/50 ML BAG IVPB ONE (01:04)
[2024-04-27] MEDS: methylPREDNISolone NA SUCC 125 MG/2 ML VIAL IVPUSH ONE (01:11)
[2024-04-27] MEDS: PIPERACILLIN/TAZOB 3.375 GM 3.375 GM in DEXTROSE 5%-WATER - 50 ML IVPB SCH ×3 (01:56→17:02)
[2024-04-27] MEDS: LEVALBUTEROL HCL 0.31 MG/3 ML VIAL.NEB IH SCH (07:20)
[2024-04-27 09:53] LABS: HEMATOCRIT 26.5 % (35.4-49); HEMOGLOBIN 8.1 GM/dL (11.7-16.9); MCH 25.8 pg (25.7-33.7); MCHC 30.8 g/dl (32.0-35.9); MEAN CELL VOLUME 83.9 fl (80-96); MEAN PLT VOLUME 9.2 fl (7.5-11.1); PLATELET COUNT 169 10^3/uL (134-434); RBC 3.15 M/mm3 (4.00-5.60); RDW 20.2 % (11.9-15.9); WHITE BLOOD COUNT 6.7 K/mm3 (4.0-10.0)
[2024-04-27 10:15] LABS: CALCIUM 8.2 mg/dL (8.5-10.1)
[2024-04-27 10:16] LABS: BLOOD UREA NITROGEN 55.1 mg/dL (7-18)
[2024-04-27 10:19] LABS: BILIRUBIN,TOTAL 0.4 mg/dL (0.2-1); CREATININE 0.6 mg/dL (0.55-1.3)
[2024-04-27 10:22] LABS: ALBUMIN 1.1 g/dl (3.4-5.0)
[2024-04-27] MEDS: methylPREDNISolone NA SUCC 40 MG/1 ML VIAL IVPUSH SCH (10:59)
[2024-04-27] MEDS: ENOXAPARIN NA (PORCINE) 40 MG/0.4 ML DISP.SYRIN SQ SCH (11:00)
[2024-04-27] MEDS: VANCOMYCIN 1,000 MG in DEXTROSE 5%-WATER - 250 ML IVPB SCH (12:13)
[2024-04-27] MEDS: DEXTROSE 5%-LACTATED RINGERS 1,000 ML IV SCH (12:54)
[2024-04-27] MEDS ORDERED: VANCOMYCIN/WATER FOR INJ (PEG) 1,000 MG/200 ML BAG IVPB SCH (13:00)
[2024-04-27 13:40] LABS: EPI CELLS 4 /uL (0-25.1); HYALINE CASTS 1 /uL (0-3.1); PH,URINE 5.5 (5.0-8.0); URINE APPEARANCE TURBID; URINE BACTERIA 14 /uL (0-1359); URINE BILIRUBIN NEGATIVE (NEGATIVE); URINE COLOR YELLOW; URINE GLUCOSE (UA) NEGATIVE (NEGATIVE); URINE KETONE 1+ (NEGATIVE); URINE LEUK ESTERASE 2+ (NEGATIVE); URINE NITRITE NEGATIVE (NEGATIVE); URINE PROTEIN 1+ (NEGATIVE); URINE WBC 926 /uL (0-25.8)
[2024-04-27 13:56] LABS: URINE RBC 2552 /uL (0-23.9); YEAST NEGATIVE (NEGATIVE)
[2024-04-27] MEDS: VANCOMYCIN/WATER FOR INJ (PEG) 1,000 MG/200 ML BAG IVPB SCH (14:12)
[2024-04-28 07:50] LABS: HEMOGLOBIN 7.8 GM/dL (11.7-16.9); MCH 25.7 pg (25.7-33.7); MEAN CELL VOLUME 85.7 fl (80-96); PLATELET COUNT 191 10^3/uL (134-434); RBC 3.04 M/mm3 (4.00-5.60); RDW 19.9 % (11.9-15.9); WHITE BLOOD COUNT 6.2 K/mm3 (4.0-10.0)
[2024-04-28 08:08] LABS: POTASSIUM 3.1 mmol/L (3.5-5.1)
[2024-04-28 08:15] LABS: CALCIUM 7.8 mg/dL (8.5-10.1)
[2024-04-28 08:20] LABS: CREATININE 0.8 mg/dL (0.55-1.3)
[2024-04-28 14:42] VITALS: BMI 18.4
[2024-04-28] MEDS: MORPHINE SULFATE/0.9% NACL/PF 100 MG/100 ML BAG IVPB SCH (17:19)
[2024-04-29] MEDS: methylPREDNISolone NA SUCC 40 MG/1 ML VIAL IVPUSH SCH (09:33)
[2024-04-29] MEDS: ENOXAPARIN NA (PORCINE) 40 MG/0.4 ML DISP.SYRIN SQ SCH (09:33)
[2024-04-29] MEDS: MORPHINE 100 MG/100 ML MG IVPB SCH (12:13)
[2024-04-29 14:57] VITALS: TEMP 98.7
[2024-04-29 14:58] VITALS: BP 137/95; PULSE 104; RESP 20
== END 2024-04-29 19:40 | disposition expired | DRG 871 ==
LOC: JER 08:36 → JERBED 11:41 → J6S 04-27 06:14 → J4S 04-27 13:20
PROVIDERS: ADMIT Internal Medicine; ATTEND Internal Medicine
DX: A41.9 Sepsis, unspecified organism (principal); G93.41 Metabolic encephalopathy; J69.0 Pneumonitis due to inhalation of food and vomit; J96.01 Acute respiratory failure with hypoxia; R53.2 Functional quadriplegia; E87.20 Acidosis, unspecified; J44.1 Chronic obstructive pulmonary disease with (acute) exacerbation; J44.0 Chronic obstructive pulmonary disease with (acute) lower respiratory infection; I50.20 Unspecified systolic (congestive) heart failure; G40.909 Epilepsy, unspecified, not intractable, without status epilepticus; E11.9 Type 2 diabetes mellitus without complications; G30.9 Alzheimer's disease, unspecified; F02.80 Dementia in other diseases classified elsewhere, unspecified severity, without behavioral disturbance, psychotic disturbance, mood disturbance, and anxiety; J44.9 Chronic obstructive pulmonary disease, unspecified; Z99.81 Dependence on supplemental oxygen; N40.0 Benign prostatic hyperplasia without lower urinary tract symptoms; L89.150 Pressure ulcer of sacral region, unstageable; I11.0 Hypertensive heart disease with heart failure
CPT/HCPCS: 0241U-QW; 36415; 36600; 71045-TC-FY; 80048; 80053; 81003; 82272; 82803; 82962; 83605; 84484; 85025; 85027; 85610; 85730; 86850; 86900; 86901; 87040; 87070; 87077; 87086; 87186; 87205; 93005; 93010; 94660; 99285-25; J0131